=== PATIENT | male | born 1955 | race Hispanic/Latino ===

== ENCOUNTER 2018-01-31 13:01 | Inpatient (IN) | payer MEDICARE, OTHER ==
[~2018-01-31] VITALS: Ht 177.8 cm; Wt 88.3 kg
[2018-01-31 13:41] LABS: BASOPHILS % (AUTO) 3.3 % (0.0-5.0); EOSINOPHILS % (AUTO) 0.8 % (0.0-8.0); HEMATOCRIT 40.3 % (42-54); LYMPHOCYTES % (AUTO) 7.8 % (21.0-51.0); MEAN CORPUSCULAR HEMOGLOBIN 28.9 pg (27.0-33.0); MEAN CORPUSCULAR HGB CONC 34.5 g/dL (32.0-36.0); MEAN CORPUSCULAR VOLUME 83.6 fL (79-99); MONOCYTES % (AUTO) 4.9 % (3.0-13.0); NEUTROPHILS % (AUTO) 83.2 % (40.0-77.0); PLATELET COUNT (AUTO) 307 K/uL (130-400); RED BLOOD CELL COUNT(AUTO) 4.82 MIL/uL (4.50-6.20); WHITE BLOOD COUNT (AUTO) 14.2 K/uL (4.8-10.8)
[2018-01-31 13:52] LABS: POTASSIUM 3.4 mmol/L (3.5-5.1)
[2018-01-31 13:58] LABS: ALBUMIN 3.6 g/dL (3.5-5.0); BILIRUBIN,TOTAL 0.4 mg/dL (0.2-1.0); TOTAL PROTEIN, SERUM 7.4 g/dL (6.0-8.3)
[2018-01-31] MEDS ORDERED: SODIUM CHLORIDE 0.9% 1000ML 1,000 ML IV ONE ×3 (14:09→17:13)
[2018-01-31] MEDS ORDERED: CEFTRIAXONE SODIUM 2 GM VIAL ONE (14:09)
[2018-01-31] MEDS ORDERED: KETOROLAC TROMETHAMINE 30MG/ML ONE (14:10)
[2018-01-31] MEDS ORDERED: SODIUM CHLORIDE 0.9% 100 ML IV ONE (14:10)
[2018-01-31 15:42] LABS: APPEARANCE,URINE Clear (CLEAR); BILIRUBIN,URINE Negative (NEGATIVE); COLOR,URINE Yellow (YELLOW); GLUCOSE, URINE (UA) >=1000 mg/dL (NEGATIVE); KETONES,URINE Trace mg/dL (NEGATIVE); LEUKOCYTE ESTERASE ,URINE Negative (NEGATIVE); NITRATE,URINE Negative (NEGATIVE); OCCULT BLOOD,URINE Negative (NEGATIVE); PH,URINE 5.5 (5.0-8.0); PROTEIN,URINE Trace (NEGATIVE); UROBILINOGEN,URINE 0.2 mg/dL (0.2-1.0)
[2018-01-31 16:17] LABS: BACTERIA,URINE Rare /HPF (None Seen); RBC,URINE 0-1 /HPF (0-1); SQUAMOUS EPITHELIAL CELL,UR Rare /HPF (0-2); WBC,URINE 0-1 /HPF (0-1)
[2018-01-31] MEDS ORDERED: ZOSYN 3.375GM+NS 50ML 50 ML IV ONE (17:14)
[2018-01-31] MEDS: ZOSYN 3.375GM+NS 50ML 50 ML IV SCH (17:15)
[2018-01-31 18:34] VITALS: BP 154/83
[2018-01-31 19:30] VITALS: BP 155/80
[2018-01-31] MEDS ORDERED: VANCOMYCIN PROTOCOL PER PHARMACY IV SCH (19:30)
[2018-01-31] MEDS ORDERED: POTASSIUM CHLORIDE 10% ELIXIR 20 MEQ/15 ML UDCUP PO PRN (19:30)
[2018-01-31] MEDS ORDERED: LIDOCAINE HCL-MPF 1% 2ML VIAL IVP PRN (19:30)
[2018-01-31] MEDS ORDERED: POTASSIUM CHLORIDE 20MEQ/100ML 100 ML IV PRN (19:30)
[2018-01-31] MEDS ORDERED: ONDANSETRON HCL MDV 20ML 2 MG/ML VIAL IVP PRN (19:30)
[2018-01-31] MEDS ORDERED: ATOR10TA69 PO (19:43)
[2018-01-31] MEDS ORDERED: ASPI-555 PO (19:43)
[2018-01-31] MEDS ORDERED: AMLO10TA2 PO (19:43)
[2018-01-31] MEDS ORDERED: GLIP-162 PO (19:43)
[2018-01-31] MEDS ORDERED: LISI40TA4 PO (19:43)
[2018-01-31] MEDS ORDERED: METF850T2 PO (19:43)
[2018-01-31] MEDS ORDERED: HYDR12.530 PO (19:43)
[2018-01-31] MEDS ORDERED: METO-409 PO (19:43)
[2018-01-31] MEDS ORDERED: LEVO88TA7 PO (19:43)
[2018-01-31] MEDS ORDERED: OMEP40CA37 PO (19:43)
[2018-01-31] MEDS: METOPROLOL TARTRATE 50 MG TAB PO SCH (20:05)
[2018-01-31] MEDS: ATORVASTATIN CALCIUM 10 MG TABLET PO SCH (20:05)
[2018-01-31] MEDS: SODIUM CHLORIDE 0.9% 1000ML 1,000 ML IV SCH (20:06)
[2018-01-31] MEDS: VANCOMYCIN 1.25 GM in N.S. 250 ML IV SCH (21:10)
[2018-01-31] MEDS: INSULIN HUMULIN R 100 UNIT/ML 3ML SQ SCH (21:10)
[2018-01-31] MEDS ORDERED: MORPHINE SULFATE 4 MG/1ML SYG ONE (22:21)
[2018-02-01 00:15] VITALS: BP 147/76
[2018-02-01] MEDS: ZOSYN 3.375GM+NS 50ML 50 ML IV SCH ×3 (01:24→17:26)
[2018-02-01 04:18] VITALS: BP 153/78
[2018-02-01 06:37] LABS: CREATININE 0.7 mg/dL (0.5-1.5); POTASSIUM 3.1 mmol/L (3.5-5.1)
[2018-02-01 06:39] LABS: HEMATOCRIT 35.9 % (42-54); MEAN CORPUSCULAR HEMOGLOBIN 29.8 pg (27.0-33.0); MEAN CORPUSCULAR HGB CONC 35.8 g/dL (32.0-36.0); MEAN CORPUSCULAR VOLUME 83.2 fL (79-99); PLATELET COUNT (AUTO) 266 K/uL (130-400); RED BLOOD CELL COUNT(AUTO) 4.31 MIL/uL (4.50-6.20); WHITE BLOOD COUNT (AUTO) 10.9 K/uL (4.8-10.8)
[2018-02-01] MEDS: LEVOTHYROXINE 88 MCG TABLET PO SCH (06:39)
[2018-02-01] MEDS: SODIUM CHLORIDE 0.9% 1000ML 1,000 ML IV SCH ×2 (06:39→20:43)
[2018-02-01] MEDS: INSULIN HUMULIN R 100 UNIT/ML 3ML SQ SCH ×4 (06:40→22:03)
[2018-02-01] MEDS: POTASSIUM CHLORIDE 20 MEQ ERTAB PO PRN ×2 (06:47→09:04)
[2018-02-01 08:00] VITALS: BP 144/77
[2018-02-01] MEDS ORDERED: COMPOUND IV REFRIGERATED 1 EACH IVSOLN MISC PRN (08:30)
[2018-02-01] MEDS: VANCOMYCIN 1.25 GM in N.S. 250 ML IV SCH ×2 (08:59→20:44)
[2018-02-01] MEDS: METFORMIN HCL 850 MG TABLET PO SCH ×2 (09:00→17:25)
[2018-02-01] MEDS: ASPIRIN 81 MG EC TAB PO SCH (09:01)
[2018-02-01] MEDS: METOPROLOL TARTRATE 50 MG TAB PO SCH ×2 (09:01→20:44)
[2018-02-01] MEDS: PANTOPRAZOLE SODIUM 40 MG TABLET.DR PO SCH (09:01)
[2018-02-01] MEDS: HYDROCHLOROTHIAZIDE 25 MG TABLET PO SCH (09:01)
[2018-02-01] MEDS: GLIPIZIDE XL 5MG TAB PO SCH (09:01)
[2018-02-01] MEDS: AMLODIPINE BESYLATE 5 MG TAB PO SCH (09:01)
[2018-02-01] MEDS: ENOXAPARIN SODIUM 40 MG/0.4 ML SYRINGE SQ SCH (09:03)
[2018-02-01 11:00] VITALS: BP 154/92
[2018-02-01] MEDS ORDERED: GADOBENATE DIMEGLUMINE 20 ML IV ONE (11:36)
[2018-02-01] MEDS: GABAPENTIN 100 MG CAPSULE PO SCH ×2 (14:35→20:44)
[2018-02-01 16:00] VITALS: BP 157/82
[2018-02-01] MEDS: LISINOPRIL 40 MG TABLET PO SCH (17:25)
[2018-02-01 20:00] VITALS: BP 152/80
[2018-02-01] MEDS: ATORVASTATIN CALCIUM 10 MG TABLET PO SCH (20:44)
[2018-02-01] MEDS ORDERED: MORPHINE SULFATE 4 MG/1ML SYG ONE (20:53)
[2018-02-01] MEDS: MORPHINE SULFATE 2 MG/ML 1ML SYG IVP PRN (20:57)
[2018-02-02] VITALS (24 sets, daily range): BP systolic 95–164; BP diastolic 50–83
[2018-02-02] MEDS: ZOSYN 3.375GM+NS 50ML 50 ML IV SCH ×4 (01:20→18:23)
[2018-02-02] MEDS: POTASSIUM CHLORIDE 20 MEQ ERTAB PO PRN (05:43)
[2018-02-02] MEDS: LEVOTHYROXINE 88 MCG TABLET PO SCH (05:43)
[2018-02-02] MEDS: INSULIN HUMULIN R 100 UNIT/ML 3ML SQ SCH ×4 (06:23→21:43)
[2018-02-02 07:32] LABS: BASOPHILS % (AUTO) 0.7 % (0.0-5.0); EOSINOPHILS % (AUTO) 0.8 % (0.0-8.0); HEMATOCRIT 36.8 % (42-54); LYMPHOCYTES % (AUTO) 13.7 % (21.0-51.0); MEAN CORPUSCULAR HEMOGLOBIN 28.9 pg (27.0-33.0); MEAN CORPUSCULAR HGB CONC 34.8 g/dL (32.0-36.0); MEAN CORPUSCULAR VOLUME 82.9 fL (79-99); MONOCYTES % (AUTO) 7.5 % (3.0-13.0); NEUTROPHILS % (AUTO) 77.3 % (40.0-77.0); PLATELET COUNT (AUTO) 292 K/uL (130-400); RED BLOOD CELL COUNT(AUTO) 4.44 MIL/uL (4.50-6.20); RED CELL DISTRIBUTION WIDTH 13.8 % (11.0-15.5); WHITE BLOOD COUNT (AUTO) 12.4 K/uL (4.8-10.8)
[2018-02-02 07:47] LABS: CREATININE 0.7 mg/dL (0.5-1.5); POTASSIUM 3.4 mmol/L (3.5-5.1)
[2018-02-02] MEDS: VANCOMYCIN 1.25 GM in N.S. 250 ML IV SCH ×2 (10:18→23:54)
[2018-02-02] MEDS: PANTOPRAZOLE SODIUM 40 MG TABLET.DR PO SCH (10:18)
[2018-02-02] MEDS: AMLODIPINE BESYLATE 5 MG TAB PO SCH (10:18)
[2018-02-02] MEDS: METOPROLOL TARTRATE 50 MG TAB PO SCH ×2 (10:18→21:27)
[2018-02-02] MEDS: METFORMIN HCL 850 MG TABLET PO SCH ×2 (10:18→14:44)
[2018-02-02] MEDS: GABAPENTIN 100 MG CAPSULE PO SCH ×3 (10:18→21:27)
[2018-02-02] MEDS: HYDROCHLOROTHIAZIDE 25 MG TABLET PO SCH (10:19)
[2018-02-02] MEDS: ASPIRIN 81 MG EC TAB PO SCH (10:19)
[2018-02-02] MEDS: GLIPIZIDE XL 5MG TAB PO SCH (10:19)
[2018-02-02] MEDS: SODIUM CHLORIDE 0.9% 1000ML 1,000 ML IV SCH ×2 (10:22→21:26)
[2018-02-02] MEDS: ENOXAPARIN SODIUM 40 MG/0.4 ML SYRINGE SQ SCH (10:22)
[2018-02-02] MEDS: LISINOPRIL 40 MG TABLET PO SCH (14:44)
[2018-02-02] MEDS ORDERED: BUPIVACAINE/PF 0.5% 30ML VIAL ONE (17:10)
[2018-02-02] MEDS ORDERED: LIDOCAINE HCL 1% MDV 50ML VIAL ONE (17:11)
[2018-02-02] MEDS ORDERED: PROPOFOL 10 MG/ML 20ML VIAL IV ONE (17:28)
[2018-02-02] MEDS: MORPHINE SULFATE 2 MG/ML 1ML SYG IVP PRN ×2 (18:46→18:55)
[2018-02-02] MEDS: ATORVASTATIN CALCIUM 10 MG TABLET PO SCH (21:27)
[2018-02-02] MEDS: HYDROMORPHONE HCL 0.5 MG/0.5 ML ML IVP PRN (22:31)
[2018-02-03] VITALS (9 sets, daily range): BP systolic 144–163; BP diastolic 74–89
[2018-02-03] MEDS: ZOSYN 3.375GM+NS 50ML 50 ML IV SCH ×3 (01:57→18:16)
[2018-02-03] MEDS: HYDROMORPHONE HCL 0.5 MG/0.5 ML ML IVP PRN ×3 (03:32→21:25)
[2018-02-03] MEDS: LEVOTHYROXINE 88 MCG TABLET PO SCH (05:52)
[2018-02-03] MEDS: VANCOMYCIN 1.25 GM in N.S. 250 ML IV SCH ×2 (05:52→13:21)
[2018-02-03] MEDS: INSULIN HUMULIN R 100 UNIT/ML 3ML SQ SCH ×4 (06:16→21:02)
[2018-02-03] MEDS: ENOXAPARIN SODIUM 40 MG/0.4 ML SYRINGE SQ SCH (09:03)
[2018-02-03] MEDS: GLIPIZIDE XL 5MG TAB PO SCH (09:04)
[2018-02-03] MEDS: METFORMIN HCL 850 MG TABLET PO SCH ×2 (09:04→18:16)
[2018-02-03] MEDS: METOPROLOL TARTRATE 50 MG TAB PO SCH ×2 (09:04→21:11)
[2018-02-03] MEDS: AMLODIPINE BESYLATE 5 MG TAB PO SCH (09:04)
[2018-02-03] MEDS: ASPIRIN 81 MG EC TAB PO SCH (09:04)
[2018-02-03] MEDS: GABAPENTIN 100 MG CAPSULE PO SCH ×3 (09:04→21:11)
[2018-02-03] MEDS: PANTOPRAZOLE SODIUM 40 MG TABLET.DR PO SCH (09:05)
[2018-02-03] MEDS: HYDROCHLOROTHIAZIDE 25 MG TABLET PO SCH (09:05)
[2018-02-03] MEDS: SODIUM CHLORIDE 0.9% 1000ML 1,000 ML IV SCH (13:20)
[2018-02-03] MEDS: LISINOPRIL 40 MG TABLET PO SCH (18:16)
[2018-02-03] MEDS: INSULIN GLARGINE 100 UNITS/ML 10 ML VIAL SQ SCH (20:55)
[2018-02-03] MEDS: ATORVASTATIN CALCIUM 10 MG TABLET PO SCH (21:10)
[2018-02-03] MEDS: POTASSIUM CHLORIDE 20 MEQ ERTAB PO PRN (21:11)
[2018-02-04] MEDS: ZOSYN 3.375GM+NS 50ML 50 ML IV SCH ×2 (01:14→09:28)
[2018-02-04] MEDS: VANCOMYCIN 1.25 GM in N.S. 250 ML IV SCH ×4 (01:14→22:28)
[2018-02-04] MEDS: POTASSIUM CHLORIDE 20 MEQ ERTAB PO PRN (01:20)
[2018-02-04] MEDS: HYDROMORPHONE HCL 0.5 MG/0.5 ML ML IVP PRN ×2 (01:30→22:27)
[2018-02-04 03:00] VITALS: BP 151/84
[2018-02-04 05:00] LABS: HEMATOCRIT 36.1 % (42-54); MEAN CORPUSCULAR HEMOGLOBIN 29.1 pg (27.0-33.0); MEAN CORPUSCULAR HGB CONC 35.5 g/dL (32.0-36.0); PLATELET COUNT (AUTO) 324 K/uL (130-400); RED CELL DISTRIBUTION WIDTH 13.7 % (11.0-15.5); WHITE BLOOD COUNT (AUTO) 11.6 K/uL (4.8-10.8)
[2018-02-04 05:19] LABS: CREATININE 0.7 mg/dL (0.5-1.5); MAGNESIUM 1.7 mg/dL (1.80-2.40); POTASSIUM 3.2 mmol/L (3.5-5.1)
[2018-02-04] MEDS: INSULIN HUMULIN R 100 UNIT/ML 3ML SQ SCH ×4 (06:49→22:38)
[2018-02-04] MEDS: LEVOTHYROXINE 88 MCG TABLET PO SCH (06:53)
[2018-02-04 08:00] VITALS: BP 145/78
[2018-02-04] MEDS: GABAPENTIN 100 MG CAPSULE PO SCH ×3 (09:24→22:28)
[2018-02-04] MEDS: HYDROCHLOROTHIAZIDE 25 MG TABLET PO SCH (09:25)
[2018-02-04] MEDS: METFORMIN HCL 850 MG TABLET PO SCH ×2 (09:25→17:14)
[2018-02-04] MEDS: ASPIRIN 81 MG EC TAB PO SCH (09:25)
[2018-02-04] MEDS: AMLODIPINE BESYLATE 5 MG TAB PO SCH (09:25)
[2018-02-04] MEDS: METOPROLOL TARTRATE 50 MG TAB PO SCH ×2 (09:25→22:27)
[2018-02-04] MEDS: GLIPIZIDE XL 5MG TAB PO SCH (09:26)
[2018-02-04] MEDS: PANTOPRAZOLE SODIUM 40 MG TABLET.DR PO SCH (09:26)
[2018-02-04] MEDS: ENOXAPARIN SODIUM 40 MG/0.4 ML SYRINGE SQ SCH (09:27)
[2018-02-04] MEDS: SODIUM CHLORIDE 0.9% 1000ML 1,000 ML IV SCH ×2 (09:32→13:35)
[2018-02-04 11:00] VITALS: BP 160/88
[2018-02-04] MEDS: ACETAMINOPHEN 325 MG TAB PO PRN (12:29)
[2018-02-04] MEDS ORDERED: MORPHINE SULFATE 4 MG/1ML SYG ONE (14:34)
[2018-02-04 16:00] VITALS: BP 151/79
[2018-02-04] MEDS ORDERED: MEROPENEM 1GM IVPB PREMIXED 1 GM IV SCH (17:00)
[2018-02-04] MEDS: LISINOPRIL 40 MG TABLET PO SCH (17:15)
[2018-02-04] MEDS: MEROPENEM 1 GM VIAL IVP SCH (17:15)
[2018-02-04 19:25] VITALS: BP 142/77
[2018-02-04] MEDS: ATORVASTATIN CALCIUM 10 MG TABLET PO SCH (22:27)
[2018-02-04] MEDS: INSULIN GLARGINE 100 UNITS/ML 10 ML VIAL SQ SCH (22:38)
[2018-02-05 00:20] VITALS: BP 138/76
[2018-02-05] MEDS: MEROPENEM 1 GM VIAL IVP SCH ×4 (03:30→23:31)
[2018-02-05] MEDS: ACETAMINOPHEN 325 MG TAB PO PRN ×2 (03:52→16:45)
[2018-02-05] MEDS: SODIUM CHLORIDE 0.9% 1000ML 1,000 ML IV SCH ×2 (03:53→20:26)
[2018-02-05 04:00] VITALS: BP 146/85
[2018-02-05] MEDS: INSULIN HUMULIN R 100 UNIT/ML 3ML SQ SCH ×4 (05:34→20:25)
[2018-02-05] MEDS: POTASSIUM CHLORIDE 20 MEQ ERTAB PO PRN ×5 (06:32→23:42)
[2018-02-05] MEDS: LEVOTHYROXINE 88 MCG TABLET PO SCH (06:32)
[2018-02-05] MEDS: VANCOMYCIN 1.25 GM in N.S. 250 ML IV SCH (06:32)
[2018-02-05] MEDS: MAGNESIUM 2GM PREMIX 50ML 50 ML IV SCH ×2 (06:33→23:37)
[2018-02-05 08:00] VITALS: BP 162/77
[2018-02-05] MEDS: METOPROLOL TARTRATE 50 MG TAB PO SCH ×2 (08:23→20:24)
[2018-02-05] MEDS: PANTOPRAZOLE SODIUM 40 MG TABLET.DR PO SCH (08:24)
[2018-02-05] MEDS: GABAPENTIN 100 MG CAPSULE PO SCH ×3 (08:24→20:24)
[2018-02-05] MEDS: METFORMIN HCL 850 MG TABLET PO SCH ×2 (08:24→16:44)
[2018-02-05] MEDS: HYDROCHLOROTHIAZIDE 25 MG TABLET PO SCH (08:24)
[2018-02-05] MEDS: GLIPIZIDE XL 5MG TAB PO SCH (08:24)
[2018-02-05] MEDS: ASPIRIN 81 MG EC TAB PO SCH (08:24)
[2018-02-05] MEDS: AMLODIPINE BESYLATE 5 MG TAB PO SCH (08:25)
[2018-02-05] MEDS: ENOXAPARIN SODIUM 40 MG/0.4 ML SYRINGE SQ SCH (08:28)
[2018-02-05 11:20] VITALS: BP 150/79
[2018-02-05] MEDS: IBUPROFEN 600 MG TABLET PO PRN (14:03)
[2018-02-05 16:00] VITALS: BP 147/78
[2018-02-05] MEDS ORDERED: VANCOMYCIN 1.25 GM in N.S. 250 ML IV SCH (16:00)
[2018-02-05] MEDS: VANCOMYCIN 1.5 GM in SODIUM CHLORIDE 0.9% 250 ML IV SCH ×2 (16:43→23:34)
[2018-02-05] MEDS: LISINOPRIL 40 MG TABLET PO SCH (16:44)
[2018-02-05] MEDS: ATORVASTATIN CALCIUM 10 MG TABLET PO SCH (20:23)
[2018-02-05] MEDS: INSULIN GLARGINE 100 UNITS/ML 10 ML VIAL SQ SCH (20:28)
[2018-02-05 21:34] LABS: MAGNESIUM 1.8 mg/dL (1.80-2.40); POTASSIUM 3.5 mmol/L (3.5-5.1)
[2018-02-05] MEDS ORDERED: MORPHINE SULFATE 4 MG/1ML SYG ONE (23:49)
[2018-02-06] VITALS (7 sets, daily range): BP systolic 133–162; BP diastolic 66–90
[2018-02-06 05:13] LABS: MEAN CORPUSCULAR HEMOGLOBIN 29.5 pg (27.0-33.0); MEAN CORPUSCULAR HGB CONC 35.8 g/dL (32.0-36.0); MEAN CORPUSCULAR VOLUME 82.3 fL (79-99); PLATELET COUNT (AUTO) 356 K/uL (130-400); RED BLOOD CELL COUNT(AUTO) 4.01 MIL/uL (4.50-6.20); RED CELL DISTRIBUTION WIDTH 13.8 % (11.0-15.5)
[2018-02-06 05:23] LABS: CREATININE 0.7 mg/dL (0.5-1.5); POTASSIUM 3.9 mmol/L (3.5-5.1)
[2018-02-06] MEDS: LEVOTHYROXINE 88 MCG TABLET PO SCH (06:05)
[2018-02-06] MEDS: HYDROMORPHONE HCL 0.5 MG/0.5 ML ML IVP PRN (06:08)
[2018-02-06] MEDS: INSULIN HUMULIN R 100 UNIT/ML 3ML SQ SCH ×3 (07:30→21:00)
[2018-02-06] MEDS: ASPIRIN 81 MG EC TAB PO SCH (09:23)
[2018-02-06] MEDS: METOPROLOL TARTRATE 50 MG TAB PO SCH ×2 (09:23→20:54)
[2018-02-06] MEDS: PANTOPRAZOLE SODIUM 40 MG TABLET.DR PO SCH (09:23)
[2018-02-06] MEDS: GLIPIZIDE XL 5MG TAB PO SCH (09:24)
[2018-02-06] MEDS: SODIUM CHLORIDE 0.9% 1000ML 1,000 ML IV SCH ×2 (09:25→21:15)
[2018-02-06] MEDS: METFORMIN HCL 850 MG TABLET PO SCH ×2 (09:25→15:55)
[2018-02-06] MEDS: ENOXAPARIN SODIUM 40 MG/0.4 ML SYRINGE SQ SCH (09:25)
[2018-02-06] MEDS: HYDROCHLOROTHIAZIDE 25 MG TABLET PO SCH (09:28)
[2018-02-06] MEDS: AMLODIPINE BESYLATE 5 MG TAB PO SCH (09:28)
[2018-02-06] MEDS: GABAPENTIN 100 MG CAPSULE PO SCH ×3 (09:28→20:54)
[2018-02-06] MEDS: MEROPENEM 1 GM VIAL IVP SCH ×2 (09:29→15:59)
[2018-02-06] MEDS: VANCOMYCIN 1.5 GM in SODIUM CHLORIDE 0.9% 250 ML IV SCH ×3 (10:03→23:46)
[2018-02-06] MEDS: IBUPROFEN 600 MG TABLET PO PRN (14:11)
[2018-02-06] MEDS: ACETAMINOPHEN 325 MG TAB PO PRN (15:54)
[2018-02-06] MEDS: LISINOPRIL 40 MG TABLET PO SCH (15:54)
[2018-02-06] MEDS: ATORVASTATIN CALCIUM 10 MG TABLET PO SCH (20:54)
[2018-02-06] MEDS: INSULIN GLARGINE 100 UNITS/ML 10 ML VIAL SQ SCH (21:04)
[2018-02-06] MEDS ORDERED: HYDROMORPHONE 1 MG/1 ML AMP ONE (21:09)
[2018-02-07] MEDS: MEROPENEM 1 GM VIAL IVP SCH ×2 (01:19→08:12)
[2018-02-07] MEDS: IBUPROFEN 600 MG TABLET PO PRN (01:41)
[2018-02-07 03:50] VITALS: BP 168/90
[2018-02-07] MEDS: LEVOTHYROXINE 88 MCG TABLET PO SCH (06:28)
[2018-02-07] MEDS: INSULIN HUMULIN R 100 UNIT/ML 3ML SQ SCH ×3 (06:30→16:30)
[2018-02-07 07:20] LABS: HEMATOCRIT 34.2 % (42-54); MEAN CORPUSCULAR HEMOGLOBIN 28.7 pg (27.0-33.0); MEAN CORPUSCULAR HGB CONC 34.9 g/dL (32.0-36.0); MEAN CORPUSCULAR VOLUME 82.3 fL (79-99); PLATELET COUNT (AUTO) 407 K/uL (130-400); RED BLOOD CELL COUNT(AUTO) 4.16 MIL/uL (4.50-6.20); RED CELL DISTRIBUTION WIDTH 13.5 % (11.0-15.5); WHITE BLOOD COUNT (AUTO) 8.4 K/uL (4.8-10.8)
[2018-02-07 07:36] LABS: ALBUMIN 2.5 g/dL (3.5-5.0); BILIRUBIN,TOTAL 0.3 mg/dL (0.2-1.0); CREATININE 0.8 mg/dL (0.5-1.5); POTASSIUM 3.7 mmol/L (3.5-5.1); TOTAL PROTEIN, SERUM 6.6 g/dL (6.0-8.3)
[2018-02-07 08:00] VITALS: BP 161/81
[2018-02-07] MEDS: GABAPENTIN 100 MG CAPSULE PO SCH ×2 (08:13→14:28)
[2018-02-07] MEDS: HYDROCHLOROTHIAZIDE 25 MG TABLET PO SCH (08:13)
[2018-02-07] MEDS: METFORMIN HCL 850 MG TABLET PO SCH ×2 (08:14→16:44)
[2018-02-07] MEDS: ASPIRIN 81 MG EC TAB PO SCH (08:14)
[2018-02-07] MEDS: GLIPIZIDE XL 5MG TAB PO SCH (08:14)
[2018-02-07] MEDS: METOPROLOL TARTRATE 50 MG TAB PO SCH (08:14)
[2018-02-07] MEDS: PANTOPRAZOLE SODIUM 40 MG TABLET.DR PO SCH (08:14)
[2018-02-07] MEDS: ENOXAPARIN SODIUM 40 MG/0.4 ML SYRINGE SQ SCH (08:15)
[2018-02-07] MEDS: AMLODIPINE BESYLATE 5 MG TAB PO SCH (08:15)
[2018-02-07] MEDS ORDERED: MORPHINE SULFATE 4 MG/1ML SYG ONE ×2 (08:19→14:16)
[2018-02-07] MEDS: VANCOMYCIN 1.5 GM in SODIUM CHLORIDE 0.9% 250 ML IV SCH (08:40)
[2018-02-07 11:00] VITALS: BP 164/86
[2018-02-07] MEDS ORDERED: INSLAN SQ (11:12)
[2018-02-07] MEDS ORDERED: GABA100C PO (11:12)
[2018-02-07] MEDS ORDERED: TYL3 PO (11:12)
[2018-02-07] MEDS ORDERED: METO50 PO (11:12)
[2018-02-07 16:00] VITALS: BP 162/77
[2018-02-07] MEDS: LISINOPRIL 40 MG TABLET PO SCH (16:44)
== END 2018-02-07 17:50 | disposition home health service (06) | DRG 854 ==
LOC: EDH 13:01 → 3CH 16:50 → 3AH 02-05 20:46
PROVIDERS: ADMIT Family Medicine; ATTEND Family Medicine
PROC: 0Y6P0Z1 Detachment at Right 1st Toe, High, Open Approach (ICD-10-PCS; principal; 2018-02-02 17:41)
DX: A41.9 Sepsis, unspecified organism (principal); L03.115 Cellulitis of right lower limb; M86.9 Osteomyelitis, unspecified; E11.52 Type 2 diabetes mellitus with diabetic peripheral angiopathy with gangrene; L03.031 Cellulitis of right toe; E87.6 Hypokalemia; E11.69 Type 2 diabetes mellitus with other specified complication; E03.9 Hypothyroidism, unspecified; I10 Essential (primary) hypertension; I25.10 Atherosclerotic heart disease of native coronary artery without angina pectoris; E78.5 Hyperlipidemia, unspecified; E11.40 Type 2 diabetes mellitus with diabetic neuropathy, unspecified; S91.331A Puncture wound without foreign body, right foot, initial encounter; E66.9 Obesity, unspecified; Z68.27 Body mass index [BMI] 27.0-27.9, adult; E11.621 Type 2 diabetes mellitus with foot ulcer; E11.65 Type 2 diabetes mellitus with hyperglycemia; L97.509 Non-pressure chronic ulcer of other part of unspecified foot with unspecified severity; Z83.3 Family history of diabetes mellitus; Z88.2 Allergy status to sulfonamides; Z82.49 Family history of ischemic heart disease and other diseases of the circulatory system
CPT/HCPCS: 36415; 71045; 71046; 73020; 73718; 80048; 80053; 80202; 81001; 82948; 83605; 83735; 84132; 84484; 85025; 85027; 87040; 87070; 87077; 87186; 87324; 88305; 88311; 93005; 93925; 97039; A4218; A9577; J0696; J1170; J1650; J1815; J1885; J2185; J2270; J2543; J2704; J3370; J3475; J3490; J7030

== ENCOUNTER → 2018-10-27 | Outpatient (CLI) | payer OTHER ==
[~2018-10-27] MED LIST: AMLO10TA7 PO; ASPI-555 PO; ATOR10TA69 PO; GABA100C PO; GLIP-162 PO; HYDR12.530 PO; INSLAN SQ; LEVO88TA7 PO; LISI40TA4 PO; METF-445 PO; METO50 PO; OMEP40CA37 PO; TYL3 PO
== END | disposition home or self-care (01) ==
LOC: SHCH 12:26
PROVIDERS: ATTEND Internal Medicine Cardiovascular Disease
DX: I70.213 Atherosclerosis of native arteries of extremities with intermittent claudication, bilateral legs (principal)
CPT/HCPCS: 93925

== ENCOUNTER → 2018-11-03 | Outpatient (CLI) | payer OTHER ==
[~2018-11-03] MED LIST changes: +REGADENOSON 0.4 MG/5 ML PF SYG IVP SCH
== END | disposition home or self-care (01) ==
LOC: SHCH 09:00
PROVIDERS: ATTEND Internal Medicine Cardiovascular Disease
DX: I99.8 Other disorder of circulatory system (principal)
CPT/HCPCS: 78452; 93017; 96374; A9500 ×2; J2785

== ENCOUNTER → 2018-11-23 | Outpatient (CLI) | payer OTHER ==
[~2018-11-23] MED LIST changes: -REGADENOSON 0.4 MG/5 ML PF SYG IVP SCH
== END | disposition home or self-care (01) ==
LOC: RAH 08:17
PROVIDERS: ATTEND Internal Medicine Gastroenterology
DX: N20.0 Calculus of kidney (principal)
CPT/HCPCS: 76700

== ENCOUNTER → 2019-06-23 | Outpatient (CLI) | payer OTHER ==
[~2019-06-23] MED LIST changes: +OMEP40CA13 PO; -OMEP40CA37 PO
== END | disposition home or self-care (01) ==
LOC: RAH 12:31
PROVIDERS: ATTEND Urology
DX: N20.0 Calculus of kidney (principal)
CPT/HCPCS: 74176

== ENCOUNTER → 2019-07-19 | Outpatient (CLI) | payer OTHER ==
[2019-07-19 10:55] LABS: CREATININE 0.9 mg/dL (0.5-1.5)
[2019-07-19 11:01] LABS: BASOPHILS % (AUTO) 0.6 % (0.0-5.0); EOSINOPHILS % (AUTO) 0.7 % (0.0-8.0); HEMATOCRIT 42.6 % (42-54); LYMPHOCYTES % (AUTO) 17.1 % (21.0-51.0); MEAN CORPUSCULAR HEMOGLOBIN 29.1 pg (27.0-33.0); MEAN CORPUSCULAR HGB CONC 33.7 g/dL (32.0-36.0); MEAN CORPUSCULAR VOLUME 86.3 fL (79-99); MONOCYTES % (AUTO) 6.2 % (3.0-13.0); NEUTROPHILS % (AUTO) 75.4 % (40.0-77.0); NUCLEATED RED BLOOD CELLS 0.1 % (0.0-0.19); PLATELET COUNT (AUTO) 274 K/uL (130-400); RED BLOOD CELL COUNT(AUTO) 4.93 MIL/uL (4.50-6.20); RED CELL DISTRIBUTION WIDTH 14.4 % (11.0-15.5); WHITE BLOOD COUNT (AUTO) 10.6 K/uL (4.8-10.8)
== END | disposition home or self-care (01) ==
LOC: LAB 10:19
PROVIDERS: ATTEND Urology
DX: N20.0 Calculus of kidney (principal); N28.89 Other specified disorders of kidney and ureter
CPT/HCPCS: 36415; 74018; 76100; 80048; 85025

== ENCOUNTER → 2019-07-21 | Outpatient (CLI) | payer OTHER ==
[~2019-07-21] MED LIST changes: +IOHEXOL-350 75 ML VIAL IV ONE
== END | disposition home or self-care (01) ==
LOC: RAH 07:25
PROVIDERS: ATTEND Urology
DX: N20.0 Calculus of kidney (principal); K76.0 Fatty (change of) liver, not elsewhere classified; N28.89 Other specified disorders of kidney and ureter
CPT/HCPCS: 74178; Q9967

== ENCOUNTER 2022-04-11 22:09 | Emergency (ER) | payer OTHER ==
[~2022-04-11] VITALS: Ht 177.8 cm; Wt 97.1 kg
[~2022-04-11 22:09] MED LIST changes: +AMLO-258 PO; -AMLO10TA7 PO; -ASPI-555 PO; +ASPI-556 PO; -ATOR10TA69 PO; +ATOR40TA71 PO; +DOXY100C5 PO; +GABA-529 PO; +HYDR10 PO; -IOHEXOL-350 75 ML VIAL IV ONE; +LEVO200T10 PO; -LEVO88TA7 PO; -LISI40TA4 PO; +LISI40TA9 PO; +METO-409 PO; -METO50 PO; -OMEP40CA13 PO; +OMEP40CA21 PO; +TAMS-1 PO
[2022-04-11 23:32] LABS: APPEARANCE,URINE SL CLOUDY (CLEAR); BILIRUBIN,URINE NEGATIVE (NEGATIVE); COLOR,URINE YELLOW (YELLOW); GLUCOSE, URINE (UA) 100 mg/dL (NEGATIVE); KETONES,URINE NEGATIVE (NEGATIVE); LEUKOCYTE ESTERASE ,URINE SMALL (NEGATIVE); NITRATE,URINE NEGATIVE (NEGATIVE); OCCULT BLOOD,URINE SMALL (NEGATIVE); PROTEIN,URINE 100 mg/dL (NEGATIVE); UROBILINOGEN,URINE 0.2 mg/dL (0.2-1.0)
[2022-04-11 23:37] VITALS: BP 98/76
[2022-04-11 23:43] LABS: BACTERIA,URINE Rare /HPF (None Seen); MUCUS,URINE Rare LPF (None Seen); RBC,URINE 0-1 /HPF (0-1); SQUAMOUS EPITHELIAL CELL,UR Rare /HPF (0-2); YEAST,URINE BUDDING None Seen /HPF (None Seen)
[2022-04-11] MEDS ORDERED: CEPH500B PO (23:46)
[2022-04-12] MEDS ORDERED: CEFTRIAXONE 1G VIAL IM ONE
[2022-04-19] MEDS ORDERED: AMOX-426 PO (14:24)
[2022-04-19] MEDS ORDERED: LISI10TA24 PO (14:24)
[2022-04-19] MEDS ORDERED: PRED20B PO (14:24)
[2022-04-19] MEDS ORDERED: AZIT250T PO (14:24)
[2022-04-19] MEDS ORDERED: METF-444 PO (14:24)
[2022-04-19] MEDS ORDERED: GLIP5TAB PO (14:24)
[2022-04-19] MEDS ORDERED: FURO40TA7 PO (14:24)
[2022-04-19] MEDS ORDERED: AMLO5TAB4 PO (14:24)
== END 2022-04-12 00:16 | disposition home or self-care (01) ==
LOC: EDH 22:09
DX: N39.0 Urinary tract infection, site not specified (principal); R33.9 Retention of urine, unspecified; E03.9 Hypothyroidism, unspecified; E11.9 Type 2 diabetes mellitus without complications; E78.00 Pure hypercholesterolemia, unspecified; I10 Essential (primary) hypertension; E66.9 Obesity, unspecified; Z88.2 Allergy status to sulfonamides; Z79.82 Long term (current) use of aspirin; Z79.899 Other long term (current) drug therapy; Z68.30 Body mass index [BMI] 30.0-30.9, adult
CPT/HCPCS: 99284; 87088; 81001; 51702; 96372; J0696

== ENCOUNTER → 2022-07-29 | Outpatient (CLI) | payer OTHER, MEDICARE ==
[~2022-07-29] MED LIST changes: -AMLO-258 PO; +AMLO5TAB4 PO; +AMOX-426 PO; -ASPI-556 PO; +AZIT250T PO; -DOXY100C5 PO; +FURO40TA7 PO; -GABA100C PO; -GLIP-162 PO; +GLIP5TAB PO; +HYDR-3421 PO; -HYDR12.530 PO; -INSLAN SQ; +LISI10TA24 PO; -LISI40TA9 PO; +METF-444 PO; -METF-445 PO; -OMEP40CA21 PO; +PRED20B PO; +REGADENOSON 0.4 MG/5 ML PF SYG IVP SCH; -TYL3 PO
== END | disposition home or self-care (01) ==
LOC: SHCH 07:48
PROVIDERS: ATTEND Nurse Practitioner Acute Care
DX: R06.09 Other forms of dyspnea (principal)
CPT/HCPCS: 78452; 96374; 93017; J2785; A9500 ×2

== ENCOUNTER → 2022-08-12 | Outpatient (CLI) | payer OTHER, MEDICARE ==
[~2022-08-12] MED LIST changes: -REGADENOSON 0.4 MG/5 ML PF SYG IVP SCH
[2022-08-12 16:23] LABS: CREATININE 1.4 mg/dL (0.5-1.5); POTASSIUM 3.9 mmol/L (3.5-5.1)
== END | disposition home or self-care (01) ==
LOC: LAB 13:45
PROVIDERS: ATTEND Internal Medicine Cardiovascular Disease
DX: I50.32 Chronic diastolic (congestive) heart failure (principal)
CPT/HCPCS: 36415; 80048; 83880

== ENCOUNTER 2022-09-25 12:38 | Emergency (ER) | payer OTHER, MEDICARE ==
[~2022-09-25] VITALS: Ht 175.3 cm; Wt 86.2 kg
[2022-09-25 13:31] LABS: BASOPHILS % (AUTO) 0.4 % (0.0-5.0); EOSINOPHILS % (AUTO) 1.2 % (0.0-8.0); HEMATOCRIT 29.6 % (42-54); LYMPHOCYTES % (AUTO) 11.7 % (21.0-51.0); MEAN CORPUSCULAR HEMOGLOBIN 25.9 pg (27.0-33.0); MEAN CORPUSCULAR HGB CONC 32.8 g/dL (32.0-36.0); MEAN CORPUSCULAR VOLUME 78.9 fL (79-99); MONOCYTES % (AUTO) 6.2 % (3.0-13.0); NEUTROPHILS % (AUTO) 79.7 % (40.0-77.0); PLATELET COUNT (AUTO) 261 K/uL (130-400); RED BLOOD CELL COUNT(AUTO) 3.75 MIL/uL (4.50-6.20); RED CELL DISTRIBUTION WIDTH 15.6 % (11.0-15.5); WHITE BLOOD COUNT (AUTO) 11.2 K/uL (4.8-10.8)
[2022-09-25 13:42] LABS: ALBUMIN 3.2 g/dL (3.5-5.0); CREATININE 1.2 mg/dL (0.5-1.5); POTASSIUM 3.9 mmol/L (3.5-5.1); TOTAL PROTEIN, SERUM 7.1 g/dL (6.0-8.3)
[2022-09-25 15:30] LABS: APPEARANCE,URINE CLEAR (CLEAR); BILIRUBIN,URINE NEGATIVE (NEGATIVE); COLOR,URINE COLORLESS (YELLOW); GLUCOSE, URINE (UA) NEGATIVE (NEGATIVE); KETONES,URINE NEGATIVE (NEGATIVE); LEUKOCYTE ESTERASE ,URINE 25 Leu/uL (NEGATIVE); NITRATE,URINE NEGATIVE (NEGATIVE); OCCULT BLOOD,URINE NEGATIVE (NEGATIVE); PH,URINE 6.5 (5.0-8.0); PROTEIN,URINE 70 mg/dL (NEGATIVE); UROBILINOGEN,URINE 0.2 mg/dL (0.2-1.0)
[2022-09-25 15:36] LABS: BACTERIA,URINE RARE /HPF (None Seen); SQUAMOUS EPITHELIAL CELL,UR RARE /HPF (0-2)
[2022-09-25] MEDS ORDERED: IOHEXOL-350 50ML VIAL IV ONE (16:47)
[2022-09-25] MEDS ORDERED: CEPH500B PO (18:04)
[2022-09-25 18:56] VITALS: BP 161/72
== END 2022-09-25 18:58 | disposition home or self-care (01) ==
LOC: EDH 12:38
DX: N39.0 Urinary tract infection, site not specified (principal); I11.0 Hypertensive heart disease with heart failure; I50.9 Heart failure, unspecified; E11.9 Type 2 diabetes mellitus without complications; E78.00 Pure hypercholesterolemia, unspecified; E66.9 Obesity, unspecified; Z68.32 Body mass index [BMI] 32.0-32.9, adult
CPT/HCPCS: 99285; 74177; 71045; 84484; 80053; 83880; 85025; 87088; 81001; 36415; 93005; Q9967

== ENCOUNTER → 2022-10-11 | Outpatient (CLI) | payer OTHER, MEDICARE ==
[~2022-10-11] MED LIST changes: +CEPH500B PO; +IOHEXOL 350 MG/ML 100ML INFUS..BTL IV ONE
== END | disposition home or self-care (01) ==
LOC: RAH 11:21
PROVIDERS: ATTEND Family Medicine
DX: R79.89 Other specified abnormal findings of blood chemistry (principal); R06.02 Shortness of breath
CPT/HCPCS: 71270; Q9967; 71275

== ENCOUNTER → 2022-10-26 | Outpatient (CLI) | payer OTHER, MEDICARE ==
[~2022-10-26] MED LIST changes: -IOHEXOL 350 MG/ML 100ML INFUS..BTL IV ONE
== END | disposition home or self-care (01) ==
LOC: SLP 20:19
PROVIDERS: ATTEND Internal Medicine Cardiovascular Disease
DX: G47.33 Obstructive sleep apnea (adult) (pediatric) (principal)
CPT/HCPCS: 95810

== ENCOUNTER → 2022-11-01 | Outpatient (CLI) | payer OTHER, MEDICARE | END | disposition home or self-care (01) | LOC: SLP 20:57 | PROVIDERS: ATTEND Internal Medicine Cardiovascular Disease | DX: G47.33 Obstructive sleep apnea (adult) (pediatric) (principal) | CPT/HCPCS: 95811 ==

== ENCOUNTER → 2022-12-14 | Outpatient (CLI) | payer OTHER, MEDICARE | END | disposition home or self-care (01) | LOC: SHCH 09:04 | PROVIDERS: ATTEND Internal Medicine Cardiovascular Disease | DX: I50.9 Heart failure, unspecified (principal) | CPT/HCPCS: 93306 ==

== ENCOUNTER 2023-02-14 23:10 | Emergency (ER) | payer OTHER, MEDICARE ==
[~2023-02-14] VITALS: Ht 177.8 cm; Wt 93.9 kg
[2023-02-14 23:45] LABS: APPEARANCE,URINE TURBID (CLEAR); BILIRUBIN,URINE NEGATIVE (NEGATIVE); COLOR,URINE YELLOW (YELLOW); GLUCOSE, URINE (UA) TRACE mg/dL (NEGATIVE); KETONES,URINE NEGATIVE (NEGATIVE); LEUKOCYTE ESTERASE ,URINE 500 Leu/uL (NEGATIVE); NITRATE,URINE NEGATIVE (NEGATIVE); PH,URINE 5.5 (5.0-8.0); PROTEIN,URINE 100 mg/dL (NEGATIVE); UROBILINOGEN,URINE 0.2 mg/dL (0.2-1.0)
[2023-02-14 23:51] LABS: BACTERIA,URINE RARE /HPF (None Seen); MUCUS,URINE RARE LPF (None Seen); OTHER CASTS, URINE 2 /LPF (None Seen); SQUAMOUS EPITHELIAL CELL,UR RARE /HPF (0-2); WBC,URINE TNTC /HPF (0-1)
[2023-02-15] MEDS ORDERED: CEFU500T67 PO (00:56)
[2023-02-15] MEDS ORDERED: CEFTRIAXONE 1G VIAL IVPB ONE (01:00)
[2023-02-15 01:01] VITALS: BP 150/60
== END 2023-02-15 01:31 | disposition home or self-care (01) ==
LOC: EDH 23:10
DX: N39.0 Urinary tract infection, site not specified (principal); E11.9 Type 2 diabetes mellitus without complications; E66.9 Obesity, unspecified; E78.00 Pure hypercholesterolemia, unspecified; I10 Essential (primary) hypertension; Z79.52 Long term (current) use of systemic steroids; Z79.899 Other long term (current) drug therapy; Z88.2 Allergy status to sulfonamides; Z68.29 Body mass index [BMI] 29.0-29.9, adult
CPT/HCPCS: 99283; 87077; 87088; 87186; 81001; 96374; J0696

== ENCOUNTER 2023-12-28 16:02 | Inpatient (IN) | payer OTHER, MEDICARE ==
[~2023-12-28] VITALS: Ht 177.8 cm; Wt 91.3 kg
[~2023-12-28 16:02] MED LIST changes: +ACAR100T2 PO; +AMLO-258 PO; -AMLO5TAB4 PO; -AMOX-426 PO; -AZIT250T PO; +BUSP7.5T7 PO; -CEPH500B PO; +FINA5TAB41 PO; +FLUC200T PO; -FURO40TA7 PO; -GLIP5TAB PO; -HYDR-3421 PO; -HYDR10 PO; +HYDR25 PO; +INSU200I4 SQ; +LABE200T7 PO; +LINE600T11 PO; -LISI10TA24 PO; -METO-409 PO; +PRED10TA3 PO; -PRED20B PO; +SODI650T PO; +TORS20TA4 PO
[2023-12-28 16:36] LABS: BASOPHILS # (AUTO) 0.05 K/uL (0.00-0.20); BASOPHILS % (AUTO) 0.4 % (0.0-5.0); EOSINOPHILS # (AUTO) 0.03 K/uL (0.00-0.70); EOSINOPHILS % (AUTO) 0.2 % (0.0-8.0); HEMATOCRIT 27.5 % (42-54); IMMATURE GRANULOCYTE ABSOLUTE 0.05 K/uL (0-1); LYMPHOCYTES # (AUTO) 1.1 K/uL (1.0-4.8); LYMPHOCYTES % (AUTO) 8.2 % (21.0-51.0); MEAN CORPUSCULAR HEMOGLOBIN 27.3 pg (27.0-33.0); MEAN CORPUSCULAR HGB CONC 34.5 g/dL (32.0-36.0); MONOCYTES % (AUTO) 7.9 % (3.0-13.0); NEUTROPHILS # (AUTO) 10.7 K/uL (1.8-7.7); NEUTROPHILS % (AUTO) 82.9 % (40.0-77.0); PLATELET COUNT (AUTO) 240 K/uL (130-400); RED BLOOD CELL COUNT(AUTO) 3.48 MIL/uL (4.50-6.20); RED CELL DISTRIBUTION WIDTH 14.6 % (11.0-15.5); WHITE BLOOD COUNT (AUTO) 12.9 K/uL (4.8-10.8)
[2023-12-28 16:51] LABS: CREATININE 1.6 mg/dL (0.5-1.3); POTASSIUM 3.4 mmol/L (3.5-5.1)
[2023-12-28 16:56] LABS: ALBUMIN 3.2 g/dL (3.5-5.0); BILIRUBIN,TOTAL 1.1 mg/dL (0.2-1.0); TOTAL PROTEIN, SERUM 7.1 g/dL (6.0-8.3)
[2023-12-28 17:00] LABS: B-TYPE NATRIURETIC PEPTIDE 563 pg/mL (0-100)
[2023-12-28 17:05] LABS: WBC MORPHOLOGY CONSISTENT W/DIFF
[2023-12-28] MEDS: ZOSYN 3.375GM +NS 50ML IVPB ONE (17:08)
[2023-12-28] MEDS: 0.9%NACL 1000ML 1,000 ML IV ONE (17:35)
[2023-12-28] MEDS: FUROSEMIDE 40MG VIAL IV ONE (17:49)
[2023-12-28] MEDS: MAGNESIUM 2GM PREMIX 50ML 50 ML IV SCH (18:15)
[2023-12-28] MEDS: POTASSIUM CHLORIDE 10% ELIXIR 20 MEQ/15 ML UDCUP ONE (18:16)
[2023-12-28] MEDS: POTASSIUM CHLORIDE 10% ELIXIR 20 MEQ/15 ML UDCUP PO SCH (18:17)
[2023-12-28] MEDS ORDERED: ACETAMINOPHEN 650 MG SUPPOSITORY RC PRN (18:30)
[2023-12-28] MEDS ORDERED: LACTULOSE 20 GM/30 ML UDCUP PO PRN (18:30)
[2023-12-28] MEDS ORDERED: DEXTROSE 50%-WATER 50 ML DISP.SYRIN IV PRN (18:30)
[2023-12-28] MEDS ORDERED: POTASSIUM CHLORIDE 20MEQ/100ML 100 ML IV PRN (18:30)
[2023-12-28] MEDS ORDERED: ONDANSETRON 4MG INJ IVP PRN (18:30)
[2023-12-28] MEDS ORDERED: POTASSIUM CHLORIDE 10% ELIXIR 20 MEQ/15 ML UDCUP PO PRN (18:30)
[2023-12-28] MEDS ORDERED: GLUCAGON 1MG KIT 1 MG ML IM PRN (18:30)
[2023-12-28] MEDS ORDERED: TEMAZEPAM 15 MG CAPSULE PO PRN (18:30)
[2023-12-28] MEDS ORDERED: ALBUTEROL 0.083% 2.5 MG/3 ML INH IH PRN (18:30)
[2023-12-28] MEDS ORDERED: DOCUSATE SODIUM 100 MG CAP PO PRN (18:30)
[2023-12-28] MEDS ORDERED: MAGNESIUM 2GM PREMIX 50ML 50 ML IV PRN (18:30)
[2023-12-28 18:35] LABS: ABG BASE EXCESS -1.6 mmol/L (-2.0-3.0); ABG HCO3 20.3 mmol/L (21.0-28.0); ABG OXYGEN SATURATION 91.6 % (95.0-99.0); ABG PCO2 28 mmHg (35-48); ABG PH 7.486 (7.35-7.450); DEVICE COMMENT RR RN; PO2, ARTERIAL BG 55.6 mmHg (83.0-108.0); VENT MODE, BG RA (ROOM AIR)
[2023-12-28 18:39] VITALS: PULSE 73; RESP 20; O2SAT 98
[2023-12-28 18:41] LABS: APPEARANCE,URINE CLOUDY (CLEAR); BILIRUBIN,URINE NEGATIVE (NEGATIVE); COLOR,URINE LIGHT-YELLOW (YELLOW); GLUCOSE, URINE (UA) 150 mg/dL (NEGATIVE); KETONES,URINE NEGATIVE (NEGATIVE); LEUKOCYTE ESTERASE ,URINE NEGATIVE Leu/uL (NEGATIVE); NITRATE,URINE NEGATIVE (NEGATIVE); OCCULT BLOOD,URINE SMALL (NEGATIVE); PH,URINE 5.5 (5.0-8.0); PROTEIN,URINE 300 mg/dL (NEGATIVE); UROBILINOGEN,URINE 0.2 mg/dL (0.2-1.0)
[2023-12-28 18:42] LABS: ADD UA MICROSCOPIC YES
[2023-12-28] MEDS: ASPIRIN 81MG CHEW TAB PO ONE (18:46)
[2023-12-28] MEDS: ENOXAPARIN SODIUM 40 MG/0.4 ML SYRINGE SQ ONE (18:46)
[2023-12-28 18:58] LABS: BACTERIA,URINE Rare /HPF (None Seen); RBC,URINE 0-1 /HPF (0-1); WBC,URINE 0-1 /HPF (0-1)
[2023-12-28 18:59] LABS: SQUAMOUS EPITHELIAL CELL,UR Rare /HPF (0-2)
[2023-12-28 19:00] LABS: INFLUENZA TYPE A NEGATIVE FOR TYPE A (NEG); INFLUENZA TYPE B NEGATIVE FOR TYPE B (NEG)
[2023-12-28 20:55] VITALS: PULSE 73; RESP 18; O2SAT 99
[2023-12-28] MEDS: ATORVASTATIN 40 MG TABLET PO SCH (21:12)
[2023-12-28] MEDS: FAMOTIDINE 20MG TAB PO SCH (21:12)
[2023-12-28 23:10] VITALS: BP 167/78; PULSE 84; RESP 22
[2023-12-28 23:16] VITALS: O2SAT 92
[2023-12-29] VITALS (12 sets, daily range): BP systolic 136–167; BP diastolic 57–79; PULSE 76–103; RESP 17–30; O2SAT 92–98
[2023-12-29] MEDS: ZOSYN 3.375GM +NS 50ML IVPB SCH (01:39)
[2023-12-29] MEDS: HYDRALAZINE 20MG/ML VIAL IV PRN (01:40)
[2023-12-29] MEDS ORDERED: 0.9%NACL 50ML IV SCH (02:00)
[2023-12-29 03:47] LABS: BASOPHILS # (AUTO) 0.05 K/uL (0.00-0.20); BASOPHILS % (AUTO) 0.4 % (0.0-5.0); EOSINOPHILS # (AUTO) 0.06 K/uL (0.00-0.70); EOSINOPHILS % (AUTO) 0.5 % (0.0-8.0); HEMATOCRIT 29.6 % (42-54); IMMATURE GRANULOCYTE ABSOLUTE 0.07 K/uL (0-1); LYMPHOCYTES # (AUTO) 1.1 K/uL (1.0-4.8); LYMPHOCYTES % (AUTO) 8.5 % (21.0-51.0); MEAN CORPUSCULAR HEMOGLOBIN 27.2 pg (27.0-33.0); MEAN CORPUSCULAR HGB CONC 33.4 g/dL (32.0-36.0); MEAN CORPUSCULAR VOLUME 81.3 fL (79-99); MONOCYTES # (AUTO) 0.9 K/uL (0.1-1.0); MONOCYTES % (AUTO) 6.9 % (3.0-13.0); NEUTROPHILS % (AUTO) 83.2 % (40.0-77.0); PLATELET COUNT (AUTO) 247 K/uL (130-400); RED BLOOD CELL COUNT(AUTO) 3.64 MIL/uL (4.50-6.20); RED CELL DISTRIBUTION WIDTH 14.6 % (11.0-15.5); WHITE BLOOD COUNT (AUTO) 13.3 K/uL (4.8-10.8)
[2023-12-29 03:57] LABS: CREATININE 1.5 mg/dL (0.5-1.3); MAGNESIUM 1.9 mg/dL (1.80-2.40); PHOSPHORUS 4.1 mg/dL (2.5-4.9); POTASSIUM 3.4 mmol/L (3.5-5.1)
[2023-12-29] MEDS: KCL 20 MEQ ERTAB PO PRN (09:42)
[2023-12-29] MEDS: ACETAMINOPHEN 325 MG TAB PO PRN (09:42)
[2023-12-29] MEDS: ASPIRIN 81MG CHEW TAB PO SCH (09:42)
[2023-12-29] MEDS ORDERED: PHARMACY COMMUNICATION MISC SCH (10:00)
[2023-12-29] MEDS ORDERED: TETR-68 PO (11:42)
[2023-12-29] MEDS: FUROSEMIDE 40MG VIAL IV SCH (12:20)
[2023-12-29] MEDS ORDERED: NITROGLYCERIN 0.4 MG SL TAB SL PRN (12:30)
[2023-12-29 12:41] LABS: HEMOGLOBIN A1C 9.6 % (4.0-6.0)
[2023-12-29] MEDS: LOSARTAN 50 MG TABLET PO SCH (15:34)
[2023-12-29] MEDS ORDERED: METO-409 PO (15:54)
[2023-12-29] MEDS ORDERED: AMLO-257 PO (15:54)
[2023-12-29] MEDS ORDERED: LEVO175C2 PO (15:54)
[2023-12-29] MEDS ORDERED: FURO40TA5 PO (15:54)
[2023-12-29] MEDS ORDERED: GLIP-162 PO (15:54)
[2023-12-29] MEDS ORDERED: OLME40TA18 PO (15:54)
[2023-12-29] MEDS: INSULIN HUMULIN R 100 UNIT/ML 3ML SQ SCH (16:45)
[2023-12-29] MEDS: MAGNESIUM 2GM PREMIX 50ML 50 ML IV ONE (18:25)
[2023-12-29] MEDS: IPRATROPIUM 0.5 MG/2.5 ML INH IH PRN (19:09)
[2023-12-29] MEDS: METOPROLOL SUCCINATE 50 MG TAB.SR.24H PO SCH (20:00)
[2023-12-29] MEDS: BUSPIRONE HCL 5 MG TABLET PO SCH (20:00)
[2023-12-29] MEDS: GABAPENTIN 100 MG CAPSULE PO SCH (20:02)
[2023-12-29] MEDS: TETRACYCLINE HCL 500 MG PO SCH (20:04)
[2023-12-29] MEDS ORDERED: NON-FORMULARY MEDICATION 1 EACH (Metoprolol Succinate 100 MG) PO SCH (21:00)
[2023-12-29] MEDS ORDERED: BUSPIRONE HCL 7.5 MG PO SCH (21:00)
[2023-12-29] MEDS: INSULIN GLARGINE 100 UNITS/ML 10 ML VIAL SQ SCH (21:37)
[2023-12-30] VITALS (13 sets, daily range): BP systolic 140–158; BP diastolic 61–80; PULSE 74–94; RESP 17–31; O2SAT 92–100
[2023-12-30 04:02] LABS: BASOPHILS # (AUTO) 0.04 K/uL (0.00-0.20); BASOPHILS % (AUTO) 0.4 % (0.0-5.0); EOSINOPHILS # (AUTO) 0.04 K/uL (0.00-0.70); EOSINOPHILS % (AUTO) 0.4 % (0.0-8.0); HEMATOCRIT 25.7 % (42-54); IMMATURE GRANULOCYTE ABSOLUTE 0.04 K/uL (0-1); LYMPHOCYTES % (AUTO) 10.1 % (21.0-51.0); MEAN CORPUSCULAR HGB CONC 33.9 g/dL (32.0-36.0); MEAN CORPUSCULAR VOLUME 79.8 fL (79-99); MONOCYTES # (AUTO) 0.8 K/uL (0.1-1.0); MONOCYTES % (AUTO) 7.3 % (3.0-13.0); NEUTROPHILS # (AUTO) 8.3 K/uL (1.8-7.7); NEUTROPHILS % (AUTO) 81.4 % (40.0-77.0); PLATELET COUNT (AUTO) 259 K/uL (130-400); RED BLOOD CELL COUNT(AUTO) 3.22 MIL/uL (4.50-6.20); RED CELL DISTRIBUTION WIDTH 14.9 % (11.0-15.5); WHITE BLOOD COUNT (AUTO) 10.2 K/uL (4.8-10.8)
[2023-12-30 04:32] LABS: ALBUMIN 2.4 g/dL (3.5-5.0); BILIRUBIN,TOTAL 1.2 mg/dL (0.2-1.0); CREATININE 1.6 mg/dL (0.5-1.3); MAGNESIUM 2.2 mg/dL (1.80-2.40); TOTAL PROTEIN, SERUM 6.9 g/dL (6.0-8.3)
[2023-12-30] MEDS: LEVOTHYROXINE 100 MCG TABLET PO SCH (05:36)
[2023-12-30] MEDS: LEVOTHYROXINE 75 MCG TABLET PO SCH (05:36)
[2023-12-30] MEDS ORDERED: LEVOTHYROXINE 175 MCG PO SCH (07:30)
[2023-12-30] MEDS: TAMSULOSIN HCL 0.4 MG CAP.ER.24H PO SCH (09:06)
[2023-12-30] MEDS: AMLODIPINE 5 MG TAB PO SCH (09:07)
[2023-12-30] MEDS: FINASTERIDE 5 MG TABLET PO SCH (09:07)
[2023-12-30] MEDS: ENOXAPARIN SODIUM 40 MG/0.4 ML SYRINGE SQ SCH (09:08)
[2023-12-30] MEDS: INSULIN GLARGINE 100 UNITS/ML 10 ML VIAL SQ SCH (09:19)
[2023-12-31] VITALS (10 sets, daily range): BP systolic 120–152; BP diastolic 71–75; PULSE 76–94; RESP 17–31; O2SAT 94–100
[2023-12-31] MEDS: FUROSEMIDE 40MG VIAL IV SCH (00:28)
[2023-12-31 04:40] LABS: HEMATOCRIT 27.2 % (42-54); MEAN CORPUSCULAR HEMOGLOBIN 27.2 pg (27.0-33.0); MEAN CORPUSCULAR HGB CONC 33.1 g/dL (32.0-36.0); MEAN CORPUSCULAR VOLUME 82.2 fL (79-99); RED BLOOD CELL COUNT(AUTO) 3.31 MIL/uL (4.50-6.20); RED CELL DISTRIBUTION WIDTH 14.9 % (11.0-15.5); WHITE BLOOD COUNT (AUTO) 8.9 K/uL (4.8-10.8)
[2023-12-31 04:58] LABS: CREATININE 1.7 mg/dL (0.5-1.3); MAGNESIUM 2.3 mg/dL (1.80-2.40); PHOSPHORUS 4.4 mg/dL (2.5-4.9); POTASSIUM 3.8 mmol/L (3.5-5.1)
[2024-01-01] VITALS (8 sets, daily range): BP systolic 138–163; BP diastolic 54–83; PULSE 59–73; RESP 18–20; O2SAT 98–99
[2024-01-01 04:08] LABS: HEMATOCRIT 24.7 % (42-54); MEAN CORPUSCULAR HEMOGLOBIN 26.3 pg (27.0-33.0); MEAN CORPUSCULAR HGB CONC 33.2 g/dL (32.0-36.0); MEAN CORPUSCULAR VOLUME 79.2 fL (79-99); RED BLOOD CELL COUNT(AUTO) 3.12 MIL/uL (4.50-6.20); RED CELL DISTRIBUTION WIDTH 14.6 % (11.0-15.5); WHITE BLOOD COUNT (AUTO) 6.4 K/uL (4.8-10.8)
[2024-01-01 04:34] LABS: CREATININE 2.1 mg/dL (0.5-1.3); POTASSIUM 3.4 mmol/L (3.5-5.1)
[2024-01-01] MEDS: FUROSEMIDE 40MG VIAL IV SCH (09:39)
[2024-01-01] MEDS: REGADENOSON 0.4 MG/5 ML PF SYG IVP SCH (10:09)
[2024-01-02] VITALS (13 sets, daily range): BP systolic 115–160; BP diastolic 58–82; PULSE 12–89; RESP 17–23; O2SAT 92–100
[2024-01-02 05:10] LABS: HEMATOCRIT 25.3 % (42-54); MEAN CORPUSCULAR HEMOGLOBIN 26.9 pg (27.0-33.0); MEAN CORPUSCULAR HGB CONC 32.8 g/dL (32.0-36.0); MEAN CORPUSCULAR VOLUME 82.1 fL (79-99); RED BLOOD CELL COUNT(AUTO) 3.08 MIL/uL (4.50-6.20); RED CELL DISTRIBUTION WIDTH 14.3 % (11.0-15.5); WHITE BLOOD COUNT (AUTO) 6.4 K/uL (4.8-10.8)
[2024-01-02 05:25] LABS: CREATININE 1.7 mg/dL (0.5-1.3); POTASSIUM 3.7 mmol/L (3.5-5.1)
[2024-01-02] MEDS ORDERED: INSULIN DEGLUDEC 200 UNIT SQ SCH (09:00)
[2024-01-02] MEDS: INSULIN GLARGINE 100 UNITS/ML 10 ML VIAL SQ SCH (20:49)
[2024-01-03] VITALS (10 sets, daily range): BP systolic 140–175; BP diastolic 67–78; PULSE 61–80; RESP 17–20; O2SAT 95–99
[2024-01-03 03:38] LABS: HEMATOCRIT 25.8 % (42-54); MEAN CORPUSCULAR HEMOGLOBIN 26.7 pg (27.0-33.0); MEAN CORPUSCULAR HGB CONC 32.9 g/dL (32.0-36.0); MEAN CORPUSCULAR VOLUME 81.1 fL (79-99); RED BLOOD CELL COUNT(AUTO) 3.18 MIL/uL (4.50-6.20); RED CELL DISTRIBUTION WIDTH 14.1 % (11.0-15.5); WHITE BLOOD COUNT (AUTO) 6.1 K/uL (4.8-10.8)
[2024-01-03 03:58] LABS: CREATININE 1.7 mg/dL (0.5-1.3); MAGNESIUM 1.8 mg/dL (1.80-2.40); POTASSIUM 3.6 mmol/L (3.5-5.1)
[2024-01-03] MEDS: MAGNESIUM 2GM PREMIX 50ML 50 ML IV PRN (10:24)
[2024-01-03] MEDS: FUROSEMIDE 40 MG TABLET PO SCH (17:23)
[2024-01-04 03:13] VITALS: BP 143/62; PULSE 59; RESP 16
[2024-01-04 03:50] LABS: HEMATOCRIT 25.9 % (42-54); MEAN CORPUSCULAR HEMOGLOBIN 26.6 pg (27.0-33.0); MEAN CORPUSCULAR HGB CONC 32.8 g/dL (32.0-36.0); MEAN CORPUSCULAR VOLUME 80.9 fL (79-99); RED BLOOD CELL COUNT(AUTO) 3.2 MIL/uL (4.50-6.20); RED CELL DISTRIBUTION WIDTH 14.4 % (11.0-15.5); WHITE BLOOD COUNT (AUTO) 6.3 K/uL (4.8-10.8)
[2024-01-04 04:19] LABS: CREATININE 1.9 mg/dL (0.5-1.3); MAGNESIUM 2.4 mg/dL (1.80-2.40); POTASSIUM 4.3 mmol/L (3.5-5.1)
[2024-01-04 06:20] VITALS: PULSE 69; RESP 18; O2SAT 100
[2024-01-04 07:50] VITALS: O2SAT 99
[2024-01-04 07:59] VITALS: BP 161/72; PULSE 58; RESP 18
[2024-01-04 08:00] VITALS: BP 161/72; PULSE 58; RESP 17
[2024-01-04] MEDS ORDERED: AMOX1TAB16 PO (09:02)
[2024-01-04 11:30] VITALS: BP 155/73; PULSE 65; RESP 17
== END 2024-01-04 15:05 | disposition home or self-care (01) | DRG 871 ==
LOC: EDH 16:02 → EDHIP 18:08 → OBSVTOIN 18:08 → 4AH 22:23
PROVIDERS: ADMIT Internal Medicine Critical Care Medicine; ATTEND Internal Medicine Critical Care Medicine
PROC: 5A09357 Assistance with Respiratory Ventilation, Less than 24 Consecutive Hours, Continuous Positive Airway Pressure (ICD-10-PCS; 2023-12-29)
PROC: 5A09357 Assistance with Respiratory Ventilation, Less than 24 Consecutive Hours, Continuous Positive Airway Pressure (ICD-10-PCS; 2023-12-29)
PROC: 4A02XM4 Measurement of Cardiac Total Activity, External Approach (ICD-10-PCS; principal; 2024-01-01)
PROC: 3E073KZ Introduction of Other Diagnostic Substance into Coronary Artery, Percutaneous Approach (ICD-10-PCS; 2024-01-01)
DX: A41.9 Sepsis, unspecified organism (principal); I50.33 Acute on chronic diastolic (congestive) heart failure; J18.9 Pneumonia, unspecified organism; J96.01 Acute respiratory failure with hypoxia; N30.00 Acute cystitis without hematuria; E87.20 Acidosis, unspecified; J90 Pleural effusion, not elsewhere classified; I13.0 Hypertensive heart and chronic kidney disease with heart failure and stage 1 through stage 4 chronic kidney disease, or unspecified chronic kidney disease; I31.39 Other pericardial effusion (noninflammatory); E87.6 Hypokalemia; E83.42 Hypomagnesemia; E11.65 Type 2 diabetes mellitus with hyperglycemia; E11.22 Type 2 diabetes mellitus with diabetic chronic kidney disease; D63.1 Anemia in chronic kidney disease; N18.32 Chronic kidney disease, stage 3b; Z20.822 Contact with and (suspected) exposure to COVID-19; E03.9 Hypothyroidism, unspecified; E78.00 Pure hypercholesterolemia, unspecified; G47.33 Obstructive sleep apnea (adult) (pediatric); I25.10 Atherosclerotic heart disease of native coronary artery without angina pectoris; I27.20 Pulmonary hypertension, unspecified; E66.9 Obesity, unspecified; S80.211A Abrasion, right knee, initial encounter; W01.0XXA Fall on same level from slipping, tripping and stumbling without subsequent striking against object, initial encounter; Y93.89 Activity, other specified; Y92.89 Other specified places as the place of occurrence of the external cause; Y99.8 Other external cause status; Z79.4 Long term (current) use of insulin; Z79.82 Long term (current) use of aspirin; Z79.84 Long term (current) use of oral hypoglycemic drugs; Z79.899 Other long term (current) drug therapy; Z87.440 Personal history of urinary (tract) infections; Z88.2 Allergy status to sulfonamides; Z89.411 Acquired absence of right great toe; Z68.28 Body mass index [BMI] 28.0-28.9, adult
CPT/HCPCS: 36415; 36600; 71045; 71250; 74176; 78452; 78582; 80048; 80053; 81001; 82550; 82803; 82948; 83036; 83605; 83735; 83880; 84100; 84145; 84443; 84484; 85025; 85027; 85378; 87040; 87088; 87426; 87804; 93005; 93017; 93306; 93356; 94640; 94660; 94664; 94760; 96365; 96372; 96374; 96375; 99291; A9500; A9540; A9558; G0378; J0360; J1650; J1815; J1940; J2543; J2785; J3475

== ENCOUNTER 2024-02-03 03:11 | Observation (INO) | payer OTHER, MEDICARE ==
[~2024-02-03] VITALS: Ht 177.8 cm; Wt 90.9 kg
[~2024-02-03 03:11] MED LIST changes: +AMLO-257 PO; -AMLO-258 PO; +AMOX1TAB16 PO; -FLUC200T PO; +FURO40TA5 PO; +GLIP-162 PO; -HYDR25 PO; -LABE200T7 PO; +LEVO175C2 PO; -LEVO200T10 PO; -LINE600T11 PO; +METO-409 PO; +OLME40TA18 PO; -PRED10TA3 PO; -SODI650T PO; +TETR-68 PO; -TORS20TA4 PO
[2024-02-03 03:59] LABS: BASOPHILS # (AUTO) 0.06 K/uL (0.00-0.20); BASOPHILS % (AUTO) 0.7 % (0.0-5.0); EOSINOPHILS # (AUTO) 0.14 K/uL (0.00-0.70); EOSINOPHILS % (AUTO) 1.6 % (0.0-8.0); HEMATOCRIT 28.8 % (42-54); IMMATURE GRANULOCYTE ABSOLUTE 0.06 K/uL (0-1); LYMPHOCYTES # (AUTO) 1.3 K/uL (1.0-4.8); LYMPHOCYTES % (AUTO) 14.4 % (21.0-51.0); MEAN CORPUSCULAR HEMOGLOBIN 27.9 pg (27.0-33.0); MEAN CORPUSCULAR HGB CONC 33.7 g/dL (32.0-36.0); MEAN CORPUSCULAR VOLUME 82.8 fL (79-99); MONOCYTES # (AUTO) 0.5 K/uL (0.1-1.0); NEUTROPHILS # (AUTO) 6.9 K/uL (1.8-7.7); NEUTROPHILS % (AUTO) 76.6 % (40.0-77.0); PLATELET COUNT (AUTO) 257 K/uL (130-400); RED BLOOD CELL COUNT(AUTO) 3.48 MIL/uL (4.50-6.20); RED CELL DISTRIBUTION WIDTH 15.7 % (11.0-15.5)
[2024-02-03 04:11] LABS: SARS-CoV-2, RNA, NAAT NEGATIVE SARS CoV-2 (NEGATIVE)
[2024-02-03 04:14] LABS: ALBUMIN 3.6 g/dL (3.5-5.0); BILIRUBIN,TOTAL 0.5 mg/dL (0.2-1.0); CREATININE 1.5 mg/dL (0.5-1.3); POTASSIUM 3.9 mmol/L (3.5-5.1); TOTAL PROTEIN, SERUM 7.4 g/dL (6.0-8.3)
[2024-02-03 04:15] LABS: INFLUENZA TYPE A Negative For Type A (NEGATIVE); INFLUENZA TYPE B Negative For Type B (NEGATIVE)
[2024-02-03 04:31] LABS: B-TYPE NATRIURETIC PEPTIDE 484 pg/mL (0-100)
[2024-02-03] MEDS: FUROSEMIDE 40MG VIAL IV ONE (06:07)
[2024-02-03] MEDS ORDERED: ACETAMINOPHEN 325 MG TAB PO PRN (07:00)
[2024-02-03] MEDS ORDERED: ALBUTEROL 0.083% 2.5 MG/3 ML INH IH PRN (07:00)
[2024-02-03] MEDS ORDERED: ONDANSETRON 4MG INJ IVP PRN (07:00)
[2024-02-03] MEDS ORDERED: GLUCAGON 1MG KIT 1 MG ML IM PRN ×2 (07:00→14:30)
[2024-02-03] MEDS ORDERED: LACTULOSE 20 GM/30 ML UDCUP PO PRN (07:00)
[2024-02-03] MEDS ORDERED: DEXTROSE 50%-WATER 50 ML DISP.SYRIN IV PRN ×2 (07:00→14:30)
[2024-02-03] MEDS: FUROSEMIDE 40MG VIAL IV SCH ×2 (07:01→09:00)
[2024-02-03 07:29] VITALS: PULSE 65; RESP 18; O2SAT 97
[2024-02-03] MEDS ORDERED: POTASSIUM CHLORIDE 10% ELIXIR 20 MEQ/15 ML UDCUP PO PRN (08:00)
[2024-02-03] MEDS ORDERED: POTASSIUM CHLORIDE 20MEQ/100ML 100 ML IV PRN ×2 (08:00)
[2024-02-03] MEDS: INSULIN HUMULIN R 100 UNIT/ML 3ML SQ SCH (08:57)
[2024-02-03] MEDS: ENOXAPARIN SODIUM 40 MG/0.4 ML SYRINGE SQ SCH (09:34)
[2024-02-03] MEDS: PANTOPRAZOLE 40 MG TAB DR PO SCH (09:35)
[2024-02-03] MEDS ORDERED: HYDRALAZINE 25MG TABLET PO SCH (14:00)
[2024-02-03 14:20] VITALS: BP 148/76; PULSE 73; RESP 20
[2024-02-03] MEDS ORDERED: MAGNESIUM 2GM PREMIX 50ML 50 ML IV PRN (14:30)
[2024-02-03 16:00] VITALS: BP 155/70; PULSE 69; RESP 20
[2024-02-03 19:00] VITALS: BP 169/74; PULSE 84; RESP 18
[2024-02-03] MEDS: METOPROLOL SUCCINATE 50 MG TAB.SR.24H PO SCH (20:45)
[2024-02-03] MEDS: ATORVASTATIN 40 MG TABLET PO SCH (20:45)
[2024-02-03] MEDS: INSULIN GLARGINE 100 UNITS/ML 10 ML VIAL SQ SCH (20:53)
[2024-02-03] MEDS: HYDRALAZINE 20MG/ML VIAL IV PRN (23:49)
[2024-02-03 23:57] VITALS: BP 163/65; PULSE 70; RESP 16
[2024-02-04] VITALS (9 sets, daily range): BP systolic 114–173; BP diastolic 63–75; PULSE 65–73; RESP 16–19; O2SAT 95–98
[2024-02-04 05:14] LABS: BASOPHILS # (AUTO) 0.06 K/uL (0.00-0.20); BASOPHILS % (AUTO) 0.7 % (0.0-5.0); EOSINOPHILS # (AUTO) 0.13 K/uL (0.00-0.70); EOSINOPHILS % (AUTO) 1.5 % (0.0-8.0); HEMATOCRIT 28.9 % (42-54); IMMATURE GRANULOCYTE ABSOLUTE 0.04 K/uL (0-1); LYMPHOCYTES # (AUTO) 1.5 K/uL (1.0-4.8); LYMPHOCYTES % (AUTO) 17.4 % (21.0-51.0); MEAN CORPUSCULAR HEMOGLOBIN 27.7 pg (27.0-33.0); MEAN CORPUSCULAR HGB CONC 33.2 g/dL (32.0-36.0); MEAN CORPUSCULAR VOLUME 83.5 fL (79-99); MONOCYTES # (AUTO) 0.6 K/uL (0.1-1.0); NEUTROPHILS # (AUTO) 6.3 K/uL (1.8-7.7); NEUTROPHILS % (AUTO) 72.9 % (40.0-77.0); PLATELET COUNT (AUTO) 281 K/uL (130-400); RED BLOOD CELL COUNT(AUTO) 3.46 MIL/uL (4.50-6.20); RED CELL DISTRIBUTION WIDTH 16.1 % (11.0-15.5); WHITE BLOOD COUNT (AUTO) 8.6 K/uL (4.8-10.8)
[2024-02-04 05:39] LABS: ALBUMIN 3.3 g/dL (3.5-5.0); BILIRUBIN,TOTAL 0.5 mg/dL (0.2-1.0); CREATININE 1.6 mg/dL (0.5-1.3); MAGNESIUM 1.6 mg/dL (1.80-2.40); PHOSPHORUS 3.9 mg/dL (2.5-4.9); POTASSIUM 3.4 mmol/L (3.5-5.1); TOTAL PROTEIN, SERUM 6.8 g/dL (6.0-8.3)
[2024-02-04 05:46] LABS: B-TYPE NATRIURETIC PEPTIDE 199 pg/mL (0-100)
[2024-02-04] MEDS: LEVOTHYROXINE 100 MCG TABLET PO SCH (06:07)
[2024-02-04] MEDS: LEVOTHYROXINE 75 MCG TABLET PO SCH (06:07)
[2024-02-04] MEDS: KCL 20 MEQ ERTAB PO PRN (06:09)
[2024-02-04] MEDS: MAGNESIUM 2GM PREMIX 50ML 50 ML IV PRN (06:10)
[2024-02-04] MEDS ORDERED: NON-FORMULARY MEDICATION 1 EACH (Levothyroxine Sodium (Levothyroxine) 175 MCG) PO SCH (07:30)
[2024-02-04] MEDS: TAMSULOSIN HCL 0.4 MG CAP.ER.24H PO SCH (08:14)
[2024-02-04] MEDS: FINASTERIDE 5 MG TABLET PO SCH (08:15)
[2024-02-04] MEDS: AMLODIPINE 5 MG TAB PO SCH (08:16)
[2024-02-04] MEDS: OLMESARTAN MEDOXOMIL 40 MG PO SCH (08:22)
[2024-02-04] MEDS: FUROSEMIDE 40 MG TABLET PO SCH (20:47)
[2024-02-04] MEDS: HYDRALAZINE HCL 10 MG TABLET PO SCH (20:48)
[2024-02-04] MEDS: INSULIN HUMULIN R 100 UNIT/ML 3ML SQ SCH (20:49)
[2024-02-04] MEDS: INSULIN GLARGINE 100 UNITS/ML 10 ML VIAL SQ SCH (20:50)
[2024-02-05] VITALS: BP 152/67; PULSE 67; RESP 18
[2024-02-05 01:35] LABS: APPEARANCE,URINE CLEAR (CLEAR); BILIRUBIN,URINE NEGATIVE (NEGATIVE); COLOR,URINE LIGHT-YELLOW (YELLOW); GLUCOSE, URINE (UA) TRACE mg/dL (NEGATIVE); KETONES,URINE NEGATIVE (NEGATIVE); LEUKOCYTE ESTERASE ,URINE NEGATIVE Leu/uL (NEGATIVE); NITRATE,URINE NEGATIVE (NEGATIVE); PROTEIN,URINE 300 mg/dL (NEGATIVE); UROBILINOGEN,URINE 0.2 mg/dL (0.2-1.0)
[2024-02-05 01:43] LABS: ADD UA MICROSCOPIC YES
[2024-02-05 01:44] LABS: BACTERIA,URINE RARE /HPF (None Seen); RBC,URINE 0-1 /HPF (0-1); SQUAMOUS EPITHELIAL CELL,UR RARE /HPF (0-2)
[2024-02-05 01:46] LABS: CREATININE,URINE RANDOM 102.18 mg/dL (30-135)
[2024-02-05 01:51] LABS: AMPHET/METH SCREEN,URINE NEGATIVE (NEGATIVE); BARBITURATE SCREEN, URINE NEGATIVE (NEGATIVE); BENZODIAZEPINES SCREEN,URINE NEGATIVE (NEGATIVE); CANNABINOID SCREEN,URINE NEGATIVE (NEGATIVE); COCAINE SCREEN,URINE NEGATIVE (NEGATIVE); OPIATE SCREEN,URINE NEGATIVE (NEGATIVE); PHENCYCLIDINE SCREEN,URINE NEGATIVE (NEGATIVE)
[2024-02-05 04:00] VITALS: BP 149/70; PULSE 68; RESP 18
[2024-02-05 05:39] LABS: BASOPHILS # (AUTO) 0.05 K/uL (0.00-0.20); BASOPHILS % (AUTO) 0.7 % (0.0-5.0); EOSINOPHILS # (AUTO) 0.17 K/uL (0.00-0.70); EOSINOPHILS % (AUTO) 2.4 % (0.0-8.0); HEMATOCRIT 27.3 % (42-54); IMMATURE GRANULOCYTE ABSOLUTE 0.04 K/uL (0-1); LYMPHOCYTES # (AUTO) 1.4 K/uL (1.0-4.8); LYMPHOCYTES % (AUTO) 19.7 % (21.0-51.0); MEAN CORPUSCULAR HEMOGLOBIN 27.4 pg (27.0-33.0); MEAN CORPUSCULAR HGB CONC 33.3 g/dL (32.0-36.0); MEAN CORPUSCULAR VOLUME 82.2 fL (79-99); MONOCYTES # (AUTO) 0.5 K/uL (0.1-1.0); MONOCYTES % (AUTO) 7.4 % (3.0-13.0); NEUTROPHILS % (AUTO) 69.2 % (40.0-77.0); PLATELET COUNT (AUTO) 266 K/uL (130-400); RED BLOOD CELL COUNT(AUTO) 3.32 MIL/uL (4.50-6.20); RED CELL DISTRIBUTION WIDTH 15.7 % (11.0-15.5); WHITE BLOOD COUNT (AUTO) 7.2 K/uL (4.8-10.8)
[2024-02-05 05:50] LABS: CREATININE 1.6 mg/dL (0.5-1.3); MAGNESIUM 1.8 mg/dL (1.80-2.40); POTASSIUM 3.5 mmol/L (3.5-5.1)
[2024-02-05 06:26] VITALS: PULSE 68; RESP 18; O2SAT 98
[2024-02-05 08:00] VITALS: BP 147/71; PULSE 62; RESP 16; O2SAT 100
[2024-02-05 12:00] VITALS: BP 144/55; PULSE 67; RESP 16
[2024-02-05 16:00] VITALS: BP 147/54; PULSE 62; RESP 16
[2024-02-05] MEDS ORDERED: HYDR-3420 PO (17:06)
[2024-02-05] MEDS ORDERED: SPIR25TA6 PO (17:06)
[2024-02-06] MEDS ORDERED: SPIRONOLACTONE 25 MG TAB PO SCH (09:00)
== END 2024-02-05 18:50 | disposition home or self-care (01) ==
LOC: EDH 03:11 → EDHIP 06:33 → 3CH 14:20
PROVIDERS: ADMIT Internal Medicine Critical Care Medicine; ATTEND Internal Medicine Critical Care Medicine
DX: I13.0 Hypertensive heart and chronic kidney disease with heart failure and stage 1 through stage 4 chronic kidney disease, or unspecified chronic kidney disease (principal); Z20.822 Contact with and (suspected) exposure to COVID-19; E11.22 Type 2 diabetes mellitus with diabetic chronic kidney disease; I50.33 Acute on chronic diastolic (congestive) heart failure; N18.30 Chronic kidney disease, stage 3 unspecified; D63.1 Anemia in chronic kidney disease; E66.9 Obesity, unspecified; E03.9 Hypothyroidism, unspecified; E78.5 Hyperlipidemia, unspecified; I27.20 Pulmonary hypertension, unspecified; E78.00 Pure hypercholesterolemia, unspecified; E11.65 Type 2 diabetes mellitus with hyperglycemia; E83.42 Hypomagnesemia; E87.6 Hypokalemia; F06.4 Anxiety disorder due to known physiological condition; Z88.2 Allergy status to sulfonamides; Z79.899 Other long term (current) drug therapy
CPT/HCPCS: 96376 ×2; 96372 ×3; 96375; 84484 ×3; 80053 ×2; 83880 ×2; 85025 ×3; 87804 ×2; 82948 ×11; 36415 ×3; 87635; 71045 ×4; 99291; 93005; 96365; 96366; 83036; 83735 ×2; 84100; 97161; 97116 ×2; 82570; 81001; 80048; 84300; 80305; 84540; 97530; J1815 ×11; G0378 ×58; J0360; J1650 ×5; J1940 ×5; J3475 ×2

== ENCOUNTER 2024-03-10 15:19 | Emergency (ER) | payer OTHER, MEDICARE ==
[~2024-03-10] VITALS: Ht 177.8 cm; Wt 90.7 kg
[~2024-03-10 15:19] MED LIST changes: -AMOX1TAB16 PO; +HYDR-3420 PO; +SPIR25TA6 PO; -TETR-68 PO
[2024-03-10 15:50] LABS: BASOPHILS # (AUTO) 0.05 K/uL (0.00-0.20); BASOPHILS % (AUTO) 0.5 % (0.0-5.0); EOSINOPHILS # (AUTO) 0.08 K/uL (0.00-0.70); EOSINOPHILS % (AUTO) 0.8 % (0.0-8.0); HEMATOCRIT 27.4 % (42-54); IMMATURE GRANULOCYTE ABSOLUTE 0.04 K/uL (0-1); LYMPHOCYTES # (AUTO) 0.9 K/uL (1.0-4.8); LYMPHOCYTES % (AUTO) 9.1 % (21.0-51.0); MEAN CORPUSCULAR HEMOGLOBIN 28.5 pg (27.0-33.0); MEAN CORPUSCULAR HGB CONC 33.6 g/dL (32.0-36.0); MEAN CORPUSCULAR VOLUME 84.8 fL (79-99); MONOCYTES # (AUTO) 0.5 K/uL (0.1-1.0); MONOCYTES % (AUTO) 5.3 % (3.0-13.0); NEUTROPHILS # (AUTO) 8.6 K/uL (1.8-7.7); NEUTROPHILS % (AUTO) 83.9 % (40.0-77.0); PLATELET COUNT (AUTO) 190 K/uL (130-400); RED BLOOD CELL COUNT(AUTO) 3.23 MIL/uL (4.50-6.20); WHITE BLOOD COUNT (AUTO) 10.3 K/uL (4.8-10.8)
[2024-03-10] MEDS ORDERED: NITROGLYCERIN 0.4 MG SL TAB SL PRN (16:00)
[2024-03-10 16:05] LABS: CREATININE 1.8 mg/dL (0.5-1.3); POTASSIUM 4.6 mmol/L (3.5-5.1)
[2024-03-10 16:09] LABS: ALBUMIN 3.6 g/dL (3.5-5.0); BILIRUBIN,TOTAL 0.4 mg/dL (0.2-1.0); MAGNESIUM 1.8 mg/dL (1.80-2.40); TOTAL PROTEIN, SERUM 7.3 g/dL (6.0-8.3)
[2024-03-10] MEDS: ASPIRIN 325MG TAB PO ONE (23:26)
[2024-03-10] MEDS: ASPIRIN 325MG TAB ONE (23:27)
[2024-03-11 00:31] VITALS: BP 138/60; PULSE 80; RESP 20; O2SAT 98
== END 2024-03-11 00:39 | disposition home or self-care (01) ==
LOC: EDH 15:19
DX: I11.0 Hypertensive heart disease with heart failure (principal); I50.9 Heart failure, unspecified; R07.89 Other chest pain; E03.9 Hypothyroidism, unspecified; E11.9 Type 2 diabetes mellitus without complications; E66.9 Obesity, unspecified; E78.00 Pure hypercholesterolemia, unspecified; Z79.4 Long term (current) use of insulin; Z79.84 Long term (current) use of oral hypoglycemic drugs; Z79.899 Other long term (current) drug therapy; Z88.2 Allergy status to sulfonamides
CPT/HCPCS: 36415; 71045; 80053; 83735; 83880; 84484; 85025; 93005

== ENCOUNTER 2024-04-30 17:16 | Emergency (ER) | payer OTHER, MEDICARE ==
[~2024-04-30] VITALS: Ht 177.8 cm; Wt 90.7 kg
[~2024-04-30 17:16] MED LIST changes: -SPIR25TA6 PO
[2024-04-30 19:19] VITALS: TEMP 97.9
[2024-04-30 19:38] LABS: APPEARANCE,URINE CLOUDY (CLEAR); BILIRUBIN,URINE NEGATIVE (NEGATIVE); COLOR,URINE LIGHT-YELLOW (YELLOW); GLUCOSE, URINE (UA) 500 mg/dL (NEGATIVE); KETONES,URINE NEGATIVE (NEGATIVE); LEUKOCYTE ESTERASE ,URINE 500 Leu/uL (NEGATIVE); NITRATE,URINE NEGATIVE (NEGATIVE); PH,URINE 5.5 (5.0-8.0); PROTEIN,URINE 70 mg/dL (NEGATIVE); UROBILINOGEN,URINE 0.2 mg/dL (0.2-1.0)
[2024-04-30 19:40] LABS: ADD UA MICROSCOPIC YES
[2024-04-30 19:44] LABS: BASOPHILS # (AUTO) 0.03 K/uL (0.00-0.20); BASOPHILS % (AUTO) 0.4 % (0.0-5.0); EOSINOPHILS # (AUTO) 0.18 K/uL (0.00-0.70); EOSINOPHILS % (AUTO) 2.3 % (0.0-8.0); HEMATOCRIT 31.6 % (42-54); IMMATURE GRANULOCYTE ABSOLUTE 0.08 K/uL (0-1); LYMPHOCYTES # (AUTO) 1.5 K/uL (1.0-4.8); LYMPHOCYTES % (AUTO) 18.7 % (21.0-51.0); MEAN CORPUSCULAR HGB CONC 34.5 g/dL (32.0-36.0); MEAN CORPUSCULAR VOLUME 81.2 fL (79-99); MONOCYTES # (AUTO) 0.7 K/uL (0.1-1.0); MONOCYTES % (AUTO) 8.6 % (3.0-13.0); NEUTROPHILS # (AUTO) 5.4 K/uL (1.8-7.7); PLATELET COUNT (AUTO) 269 K/uL (130-400); RED BLOOD CELL COUNT(AUTO) 3.89 MIL/uL (4.50-6.20); RED CELL DISTRIBUTION WIDTH 14.1 % (11.0-15.5); WHITE BLOOD COUNT (AUTO) 7.9 K/uL (4.8-10.8)
[2024-04-30] MEDS: 0.9%NACL 1000ML 1,000 ML IV ONE (19:46)
[2024-04-30 19:48] LABS: BACTERIA,URINE RARE /HPF (None Seen); NON-SQUAMOUS EPITHELIAL CELL 2 /HPF (0-2); WBC CLUMP MANY /HPF (0-1); WBC,URINE TNTC /HPF (0-1)
[2024-04-30 19:58] LABS: CREATININE 2.5 mg/dL (0.5-1.3); POTASSIUM 4.2 mmol/L (3.5-5.1)
[2024-04-30 20:02] LABS: ALBUMIN 3.6 g/dL (3.5-5.0); BILIRUBIN,TOTAL 0.5 mg/dL (0.2-1.0); TOTAL PROTEIN, SERUM 7.9 g/dL (6.0-8.3)
[2024-04-30] MEDS: hydrALAZine 20MG/ML VIAL IV ONE (20:16)
[2024-04-30] MEDS: cefTRIAXone 1G VIAL IVPB ONE (20:16)
[2024-04-30 20:37] VITALS: BP 178/72; PULSE 72; RESP 16; O2SAT 97
[2024-04-30] MEDS ORDERED: CIPR-278 PO (21:05)
== END 2024-04-30 21:12 | disposition home or self-care (01) ==
LOC: EDH 17:16
DX: N39.0 Urinary tract infection, site not specified (principal); I10 Essential (primary) hypertension; E11.9 Type 2 diabetes mellitus without complications; E78.00 Pure hypercholesterolemia, unspecified; E66.9 Obesity, unspecified; Z88.2 Allergy status to sulfonamides; Z79.84 Long term (current) use of oral hypoglycemic drugs; Z79.899 Other long term (current) drug therapy; Z89.411 Acquired absence of right great toe; Z68.30 Body mass index [BMI] 30.0-30.9, adult
CPT/HCPCS: 99284; 96374; 96361; 96375; 80053; 85025; 87086 ×2; 87186; 81001; 36415; J0360; J0696

== ENCOUNTER → 2024-05-14 | Outpatient (CLI) | payer OTHER, MEDICARE ==
[~2024-05-14] MED LIST changes: +CIPR-278 PO
[2024-05-14 12:59] LABS: BASOPHILS # (AUTO) 0.06 K/uL (0.00-0.20); BASOPHILS % (AUTO) 0.6 % (0.0-5.0); EOSINOPHILS # (AUTO) 0.22 K/uL (0.00-0.70); EOSINOPHILS % (AUTO) 2.3 % (0.0-8.0); HEMATOCRIT 33.3 % (42-54); IMMATURE GRANULOCYTE ABSOLUTE 0.07 K/uL (0-1); LYMPHOCYTES # (AUTO) 2.1 K/uL (1.0-4.8); LYMPHOCYTES % (AUTO) 21.5 % (21.0-51.0); MEAN CORPUSCULAR HEMOGLOBIN 27.8 pg (27.0-33.0); MEAN CORPUSCULAR HGB CONC 33.6 g/dL (32.0-36.0); MEAN CORPUSCULAR VOLUME 82.6 fL (79-99); MONOCYTES # (AUTO) 0.7 K/uL (0.1-1.0); NEUTROPHILS # (AUTO) 6.5 K/uL (1.8-7.7); NEUTROPHILS % (AUTO) 67.9 % (40.0-77.0); PLATELET COUNT (AUTO) 304 K/uL (130-400); RED BLOOD CELL COUNT(AUTO) 4.03 MIL/uL (4.50-6.20); RED CELL DISTRIBUTION WIDTH 14.1 % (11.0-15.5); WHITE BLOOD COUNT (AUTO) 9.6 K/uL (4.8-10.8)
[2024-05-14 13:14] LABS: % IRON SATURATION 23.2 % (30-44)
[2024-05-14 13:53] LABS: CREATININE 2.4 mg/dL (0.5-1.3); POTASSIUM 4.5 mmol/L (3.5-5.1)
== END | disposition home or self-care (01) ==
LOC: LAB 08:34
PROVIDERS: ATTEND Internal Medicine Cardiovascular Disease
DX: I11.0 Hypertensive heart disease with heart failure (principal); I50.32 Chronic diastolic (congestive) heart failure
CPT/HCPCS: 36415; 80048; 82728; 83540; 83550; 83880; 85025

== ENCOUNTER → 2024-05-20 | Outpatient (CLI) | payer OTHER, MEDICARE ==
[2024-05-20 12:26] LABS: CREATININE 2.7 mg/dL (0.5-1.3); POTASSIUM 4.8 mmol/L (3.5-5.1)
== END | disposition home or self-care (01) ==
LOC: LAB 08:38
PROVIDERS: ATTEND Internal Medicine Cardiovascular Disease
DX: I11.0 Hypertensive heart disease with heart failure (principal); I50.32 Chronic diastolic (congestive) heart failure
CPT/HCPCS: 36415; 80048

== ENCOUNTER 2024-10-16 15:36 | Emergency (ER) | payer MEDICARE ==
[~2024-10-16] VITALS: Ht 177.8 cm; Wt 94.8 kg
--- NOTE | 2024-10-16 16:13 | ERN ---
General Chief Complaint: Pelvic Pain Stated Complaint: INFECTION IN BLADDER Time Seen by MD: 15:38 Source: patient History of Present Illness Initial Comments PATIENT IS A 69-YEAR-OLD MALE COMING IN TO BE EVALUATED FOR SUPRAPUBIC DISCOMFORT. PATIENT ALSO STATES THAT HE HAS BEEN VOIDING VERY LITTLE FOR A COUPLE OF THESE. ALONG WITH THIS HE STATES THAT THE SUPRAPUBIC DISCOMFORT FLUCTUATING INTENSITY. Allergies: Coded Allergies: Sulfa (Sulfonamide Antibiotics) (Verified Allergy, Unknown, 01/31/18) Home Meds Active Scripts Ciprofloxacin HCl (Cipro) 500 Mg Tablet, 1 TAB PO BID for 10 Days, #20 TAB 0 Refills Prov:DOLORES BARRAZA PA 04/30/24 Hydralazine Hcl (APRESOLINE) 10 Mg Tablet, 10 MG PO BID, #60 TAB 0 Refills Prov:[employer] TE[employer]ER 02/05/24 Metformin HCl (Metformin HCl) 500 Mg Tablet, 1000 MG PO BIDMEALS for 30 Days, #120 TAB Prov:ZACH KUHN AGACNP 04/19/22 Tamsulosin HCl (Flomax) 0.4 Mg Cap.er.24h, 0.4 MG PO DAILY, #30 CAPSULE.DR 0 Refills Prov:MITA GEE NP 01/17/22 Reported Medications Insulin Degludec (Tresiba Flextouch U-200) 200 Unit/Ml (3 Ml) Insuln.pen, 62 UNIT SQ DAILY for 90 Days, SYRINGE 03/21/24 Amlodipine Besylate (Amlodipine Besylate) 5 Mg Tablet, 5 MG PO DAILY, TAB 12/29/23 Levothyroxine Sodium (Levothyroxine) 175 Mcg Capsule, 175 MCG PO ACBKFST, CAP 12/29/23 Furosemide (Furosemide) 40 Mg Tablet, 40 MG PO BID, TAB 12/29/23 Olmesartan Medoxomil (Olmesartan Medoxomil) 40 Mg Tablet, 40 MG PO DAILY, TAB 12/29/23 Glipizide (Glipizide ER) 5 Mg Tab.er.24, 5 MG PO BID 12/29/23 Metoprolol Succinate (Metoprolol Succinate) 100 Mg Tab.er.24h, 100 MG PO BID, TAB 12/29/23 Buspirone HCl (Buspirone HCl) 7.5 Mg Tablet, 7.5 MG PO BID, TAB 07/14/23 Finasteride (Finasteride) 5 Mg Tablet, 5 MG PO DAILY, TAB 07/14/23 Acarbose (Acarbose) 100 Mg Tablet, 100 MG PO TIDMEALS, TAB 07/14/23 Atorvastatin Calcium (Atorvastatin Calcium) 40 Mg Tablet, 1 TAB PO HS 01/12/22 Gabapentin (Gabapentin) 100 Mg Capsule, 1 CAP PO TID 01/12/22 Past Medical History Past Medical History: Diabetes-Type II, High Cholesterol, Heart Disease, Hypertension, Hypothyroid Medical History Other: Obesity Past Surgical History: Other Surgical History Other: RT GREAT TOE AMPUTATION Family History Family History: Negative Social History Social History: Negative, Lives with family ROS Dictation CONSTITUTIONAL: NO CHILLS, NO FEVER, NO WEAKNESS, NO DIAPHORESIS, NO MALAISE. HEAD/FACE: NO SIGNS OF TRAUMA. EENT: NO EYE PAIN, NO BLURRED VISION, NO TEARING, NO DOUBLE VISION, NO EAR PAIN, NO EAR DISCHARGE, NO NOSE PAIN, NO NASAL CONGESTION, NO THROAT PAIN, NO THROAT SWELLING, NO MOUTH PAIN. RESPIRATORY: NO COUGH, NO ORTHOPNEA, NO SOB, NO STRIDOR, NO WHEEZING. CARDIOVASCULAR: NO CHEST PAIN, NO EDEMA, NO PALPITATIONS, NO SYNCOPE. GASTROINTESTINAL/ABDOMINAL: NO ABDOMINAL PAIN, NO CONSTIPATION, NO DIARRHEA, NO NAUSEA, NO VOMITING. GENITOURINARY: NO ABNORMAL DISCHARGE, NO DYSURIA, NO FREQUENT URINATION, NO HEMATURIA. NO COMPLAINTS OF PAIN IN THE GENITALS. MUSCULOSKELETAL: NO BACK PAIN, NO GOUT, NO JOINT PAIN, NO JOINT SWELLING, NO MUSCLE PAIN, NO MUSCLE STIFFNESS, NO NECK PAIN. INTEGUMENTARY: NO CHANGE IN COLOR, NO CHANGE IN HAIR/NAILS, NO DRYNESS, NO LESION, NO LUMPS, NO RASH. NEUROLOGICAL/PSYCH: NO ANXIETY, NOT DEPRESSED, NO EMOTIONAL PROBLEM, NO HEADACHE, NO NUMBNESS, NO PRE-EXISTING DEFICIT, NO HISTORY OF SEIZURES, NO TREMORS, NO WEAKNESS. HEMATOLOGIC/LYMPHATIC: NOT ANEMIC, NO HISTORY OF BLOOD CLOTS, NO APPARENT BLEEDING, NO BRUISING, GLANDS NOT SWOLLEN. ALL SYSTEMS NEGATIVE, EXCEPT NOTED. Physical Exam Physical Exam Dictation VITAL SIGNS: REVIEWED. GENERAL APPEARANCE: ALERT, ORIENTED X3, NO ACUTE DISTRESS, OBESE. HEAD AND FACE: NON-TRAUMATIC. EYES: PERRL, PINK CONJUNCTIVAS, EYELID NO TRAUMA, ANTERIOR CHAMBER CLEAR. EARS: PINNAS INTACT AND NO SIGNS OF TRAUMA OR ERYTHEMA. EAR CANALS CLEAR AND NO DISCHARGE. TMS NO ERYTHEMA. NOSE: NO DISCHARGE, NO BLEEDING. OROPHARYNX: MOUTH NORMAL, TEETH NO CARIES, TONGUE PINK. PHARYNX CLEAR, NO ERYTHEMA. TONSILS NO EXUDATES, NO ABSCESSES NOTED. MUCOUS MEMBRANE MOIST. NECK: SUPPLE, NON-TENDER, NO THYROMEGALY, NO MASSES, NO JVD, NO BRUITS. BREAST: DEFERRED. CHEST: NO TENDERNESS, NO CREPITUS, NO PARADOXICAL MOVEMENT, NO RETRACTIONS. LUNGS: CLEAR, WELL-VENTILATED, SYMMETRIC, NO RALES, NO WHEEZING, NO RHONCHI, NO STRIDOR, GOOD BREATH SOUNDS BILATERALLY. HEART: REGULAR RATE, REGULAR RHYTHM, NO MURMUR, NO GALLOPS. VASCULAR: NO PERIPHERAL EDEMA. ABDOMEN: SOFT, POSITIVE BOWEL SOUNDS, NONDISTENDED, NO GUARDING, NONTENDER, NO REBOUND, NO MASSES NO HEPATOMEGALY, NO SPLENOMEGALY, NO FISCHER'S SIGN, NO HERNIAS. RECTAL: DEFERRED. GENITAL: DEFERRED. NEUROLOGICAL: NORMAL SPEECH, GROSS MOTOR FUNCTION INTACT, GROSS SENSORY FUNCTION INTACT. MUSCULOSKELETAL: NECK NONTENDER, FULL RANGE OF MOTION, BACK NONTENDER, FULL RANGE OF MOTION. EXTREMITIES: NONTENDER, FULL RANGE OF MOTION. SKIN: COLOR PINK, DRY, NO TURGOR, NO RASH, NO LACERATIONS, NO ABRASIONS, NO CONTUSIONS. LYMPHATICS: DEFERRED. Results Laboratory and Microbiology Lab and Micro Result Laboratory Tests Test 10/16/24 16:19 10/16/24 21:25 White Blood Count 7.8 K/uL (4.8-10.8) Red Blood Count 3.71 MIL/uL (4.50-6.20) L Hemoglobin 10.5 g/dL (14.0-18.0) L Hematocrit 30.8 % (42-54) L Mean Corpuscular Volume 83.0 fL (79-99) Mean Corpuscular Hemoglobin 28.3 pg (27.0-33.0) Mean Corpuscular Hemoglobin Concent 34.1 g/dL (32.0-36.0) Red Cell Distribution Width 13.4 % (11.0-15.5) Platelet Count 263 K/uL (130-400) Mean Platelet Volume 9.5 fL (7.5-10.5) Immature Granulocyte % (Auto) 0.9 % (0-1) Neutrophils (%) (Auto) 77.7 % (40.0-77.0) H Lymphocytes (%) (Auto) 12.9 % (21.0-51.0) L Monocytes (%) (Auto) 5.7 % (3.0-13.0) Eosinophils (%) (Auto) 2.2 % (0.0-8.0) Basophils (%) (Auto) 0.6 % (0.0-5.0) Neutrophils # (Auto) 6.0 K/uL (1.8-7.7) Lymphocytes # (Auto) 1.0 K/uL (1.0-4.8) Monocytes # (Auto) 0.4 K/uL (0.1-1.0) Eosinophils # (Auto) 0.17 K/uL (0.00-0.70) Basophils # (Auto) 0.05 K/uL (0.00-0.20) Absolute Immature Granulocyte (auto 0.07 K/uL (0-1) Nucleated Red Blood Cells 0.0 % (0.0-0.19) Sodium Level 135 mmol/L (136-145) L Potassium Level 3.8 mmol/L (3.5-5.1) Chloride Level 102 mmol/L (101-111) Carbon Dioxide Level 28 mmol/L (21-32) Blood Urea Nitrogen 26 mg/dL (7-18) H Creatinine 1.8 mg/dL (0.5-1.3) H Glomerular Filtration Rate Calc 40 mL/min (>90) Random Glucose 304 mg/dL (70-105) H Total Calcium 8.8 mg/dL (8.5-10.1) Urine Color LIGHT-YELLOW (YELLOW) Urine Appearance CLOUDY (CLEAR) H Urine pH 5.5 (5.0-8.0) Urine Specific [place] 1.011 (1.001-1.031) Urine Protein 100 mg/dL (NEGATIVE) H Urine Glucose (UA) 200 mg/dL (NEGATIVE) H Urine Ketones NEGATIVE mg/dL (NEGATIVE) Urine Occult Blood SMALL (NEGATIVE) H Urine Nitrate 2+ (NEGATIVE) H Urine Bilirubin NEGATIVE mg/dL (NEGATIVE) Urine Urobilinogen 0.2 mg/dL (0.2-1.0) Urine Leukocyte Esterase 500 Kristen/uL (NEGATIVE) H Urine RBC 11-25 /HPF (0-1) H Urine WBC 26-50 /HPF (0-1) H Urine WBC Clumps (Auto) FEW /HPF (0-1) Urine Squamous Epithelial Cells RARE /HPF (0-2) Urine Bacteria FEW /HPF (None Seen) Labs Reviewed?: Yes MDM MDM: Differential diagnosis: Rationale: Tests considered and ordered secondary to shared decision making include: Previous outside records reviewed: Old ER visits. Risk of complication and/or morbidity or mortality of patient management: None Medications-Per medication reconciliation Need for hospitalization: Patient does not meet criteria for hospitalization. Need for emergency major/minor surgery: No There are no social concerns with this patient. Prescription drug management Prescriptions will include symptomatic care Patient's prior external medical records from other ER visits were reviewed by me as indicated. Prior testing and results from previous visits were reviewed. Prior tests were taken into account with medical decision making and resource utilization, independent historian/historians were used to obtain complete medical history. I independently interpreted the test that were performed, results were reviewed by me and considered findings on radiology if ordered. Medical management and examination interpretation discussions were had by me with other qualified healthcare professionals as indicated for the patient's care. ED Course Orders Procedure Category Date Status Time Cbc With Differential LAB 10/16/24 Complete 15:45 Basic Metabolic Panel LAB 10/16/24 Complete 15:45 Urinalysis LAB 10/16/24 Complete W/Microscopic 15:45 Bladder Scan CPOE 10/16/24 Transmitted 15:45 Ct Abdomen/Pelvis W/O CT 10/16/24 Resulted Contrast 19:21 Culture Urine BRANDO 10/16/24 Logged 21:39 Ceftriaxone 1g Vial PHA 10/16/24 In Process (Rocephine 1g Inj) 22:00 Current Medications Medications (Trade) Dose Ordered Sig/Ramana Route PRN Reason Start Time Stop Time Status Last Admin Dose Admin Ceftriaxone Sodium (ROCEphine 1G INJ) 1 gm ONCE ONCE IVPB 10/16/24 22:00 10/16/24 22:01 Vital Signs Date Time Temp Pulse Resp B/P (MAP) Pulse Ox O2 Delivery O2 Flow Rate FiO2 10/16/24 19:57 98.2 73 15 160/70 100 Room Air* 0 21 10/16/24 15:44 98.2 73 18 166/71 100 Room Air DX & DISP Disposition: Discharge Departure Impression: Primary Impression: Urinary tract infection Condition: Stable Scripts Cephalexin Monohydrate (Keflex) 500 Mg Cap 500 MG PO BID for 7 Days, #14 CAP Prov: RAYNA LUNDBERG MD 10/16/24 Referrals: MORAIMA CONNELL MD (PCP) MARYCHUY HOPKINS MD Oct 16, 2024 16:13 RAYNA LUNDBERG MD Oct 16, 2024 21:51
[2024-10-16 16:25] LABS: BASOPHILS # (AUTO) 0.05 K/uL (0.00-0.20); BASOPHILS % (AUTO) 0.6 % (0.0-5.0); EOSINOPHILS # (AUTO) 0.17 K/uL (0.00-0.70); EOSINOPHILS % (AUTO) 2.2 % (0.0-8.0); HEMATOCRIT 30.8 % (42-54); IMMATURE GRANULOCYTE ABSOLUTE 0.07 K/uL (0-1); LYMPHOCYTES % (AUTO) 12.9 % (21.0-51.0); MEAN CORPUSCULAR HEMOGLOBIN 28.3 pg (27.0-33.0); MEAN CORPUSCULAR HGB CONC 34.1 g/dL (32.0-36.0); MONOCYTES # (AUTO) 0.4 K/uL (0.1-1.0); MONOCYTES % (AUTO) 5.7 % (3.0-13.0); NEUTROPHILS % (AUTO) 77.7 % (40.0-77.0); PLATELET COUNT (AUTO) 263 K/uL (130-400); RED BLOOD CELL COUNT(AUTO) 3.71 MIL/uL (4.50-6.20); RED CELL DISTRIBUTION WIDTH 13.4 % (11.0-15.5); WHITE BLOOD COUNT (AUTO) 7.8 K/uL (4.8-10.8)
[2024-10-16 16:37] LABS: CREATININE 1.8 mg/dL (0.5-1.3); POTASSIUM 3.8 mmol/L (3.5-5.1)
--- NOTE | 2024-10-16 19:53 | NUR ---
pt bladder scan complete at this time 332 ml identified at this time
--- NOTE | 2024-10-16 20:19 | HMCIMG ---
CT ABDOMEN/PELVIS W/O CONTRAST CLINICAL HISTORY: Abdominal pain COMPARISON: None TECHNIQUE: Sequential axial images of abdomen and pelvis without contrast and with sagittal and coronal reconstructions. CT was performed with one or more of the following dose reduction techniques: automated exposure control, adjustment of the mA and/or kV according to patient size, or use of iterative reconstruction technique FINDINGS: Lung bases are clear. There is calcified coronary artery disease. The liver is unremarkable. Note is made of calcification of the splenic capsule. The gallbladder pancreas and adrenal glands are unremarkable. There is bilateral perirenal stranding likely represents senescent changes. The bladder appears unremarkable. There is no identified bowel obstruction. There is moderate amount of fecal material in the colon. The appendix is normal. There is no free or free fluid. There is no bulky abdominal or retroperitoneal lymphadenopathy. The prostate gland is unremarkable. There is mild diffuse degenerative change in spine with vacuum disc phenomenon at L5-S1. IMPRESSION: Constipation.
[2024-10-16 21:32] LABS: APPEARANCE,URINE CLOUDY (CLEAR); BILIRUBIN,URINE NEGATIVE (NEGATIVE); COLOR,URINE LIGHT-YELLOW (YELLOW); GLUCOSE, URINE (UA) 200 mg/dL (NEGATIVE); KETONES,URINE NEGATIVE (NEGATIVE); LEUKOCYTE ESTERASE ,URINE 500 Leu/uL (NEGATIVE); NITRATE,URINE 2+ (NEGATIVE); OCCULT BLOOD,URINE SMALL (NEGATIVE); PH,URINE 5.5 (5.0-8.0); PROTEIN,URINE 100 mg/dL (NEGATIVE); UROBILINOGEN,URINE 0.2 mg/dL (0.2-1.0)
[2024-10-16 21:42] LABS: BACTERIA,URINE FEW /HPF (None Seen); MUCUS,URINE RARE LPF (None Seen); SQUAMOUS EPITHELIAL CELL,UR RARE /HPF (0-2); WBC CLUMP FEW /HPF (0-1); WBC,URINE 26-50 /HPF (0-1)
[2024-10-16] MEDS ORDERED: CEPH500B PO (21:51)
[2024-10-16] MEDS: cefTRIAXone 1G VIAL IVPB ONE (21:55)
[2024-10-16 21:58] VITALS: BP 156/65; PULSE 72; RESP 16; TEMP 98.3; O2SAT 98
== END 2024-10-16 22:06 | disposition home or self-care (01) ==
LOC: EDH 15:36
DX: N39.0 Urinary tract infection, site not specified (principal); E11.9 Type 2 diabetes mellitus without complications; E03.9 Hypothyroidism, unspecified; E66.9 Obesity, unspecified; E78.00 Pure hypercholesterolemia, unspecified; I10 Essential (primary) hypertension; Z79.4 Long term (current) use of insulin; Z79.84 Long term (current) use of oral hypoglycemic drugs; Z79.899 Other long term (current) drug therapy; Z88.2 Allergy status to sulfonamides
CPT/HCPCS: 99285; 74176; 96374; 80048; 85025; 87086 ×2; 87186; 81001; 36415; J0696